=== PATIENT | female | born 1935 | race Caucasian/White ===

== ENCOUNTER 2018-04-19 10:34 | Outpatient (CLI) | payer MEDICARE, MEDICAID ==
--- NOTE | 2018-04-19 12:09 | RAD ---
2 VIEWS CHEST: Date: 04/19/18 HISTORY: Dyspnea. FINDINGS: PA and lateral views of chest obtained. Comparison made to previous exam from 08/06/15. Two views of the chest demonstrate ectasia of the aorta. The lungs are well aerated. No evidence of a ctive intrathoracic disease seen. No evidence of effusions, pneumonia, or pneumothorax seen. Osteopor osis seen in the thoracic spine. IMPRESSION: Unremarkable 2 views chest. POS: [facility]
== END 2018-04-19 10:35 | disposition home or self-care (01) ==
LOC: RAD 10:34
PROVIDERS: ATTEND Internal Medicine Pulmonary Disease
DX: R06.00 Dyspnea, unspecified (principal)
CPT/HCPCS: 71046

== ENCOUNTER 2018-08-25 12:04 | Emergency (ER) | payer MEDICARE, MEDICAID ==
[2018-08-25 12:35] LABS: Lactate 0.97 mmol/L (0.50-2.20)
[2018-08-25] MEDS ORDERED: methylPREDNISolone Sod Succ/PF 125 MG/2 ML VIAL ONE (12:39)
[2018-08-25] MEDS ORDERED: Magnesium 2 GM/50 ML BAG (IN WATER) ONE (12:39)
[2018-08-25] MEDS ORDERED: Water For Inject, Bacteriostat 30 ML ONE (12:39)
[2018-08-25 12:43] LABS: Hemoglobin 12.3 g/dL (12.0-16.0); Mean Corpuscular Hemoglobin 28.6 pg (27.0-31.0); Mean Corpuscular Volume 92.2 fL (78.0-98.0); Mean Platelet Volume 7.7 fL (7.4-10.4); Platelet Count 309 thou/uL (130-400); RBC Distribution Width 12.6 % (11.5-14.5); White Blood Cell (WBC) Count 18.8 thou/uL (4.8-10.8)
[2018-08-25 13:02] LABS: ALT (SGPT) 25 U/L (8-55); AST (SGOT) 23 U/L (5-34); Albumin 4.1 g/dL (3.4-4.8); Alkaline Phosphatase 76 U/L (40-150); Anion Gap 14 mmol/L (10-20); BUN (Urea Nitrogen) 15 mg/dL (9.8-20.1); Bilirubin, Total 0.5 mg/dL (0.2-1.2); CK (CPK) 141 U/L (29-168); Calc. Creatinine Clearance 0 mL/min (70-130); Carbon Dioxide 30 mmol/L (23-31); Chloride 99 mmol/L (98-107); Estimated GFR-MDRD 63; Globulin 3.4 g/dL (2.4-3.5); Glucose 95 mg/dL (83-110); Potassium 4.6 mmol/L (3.5-5.1); Protein, Total 7.5 g/dL (6.0-8.3); Sodium 138 mmol/L (136-145)
[2018-08-25 13:05] LABS: Band 22 % (5-11); Lymphocytes 3 % (21-51); MDiff Complete? YES; Monocytes 5 % (0-10); Neutrophil 68 % (42-75); RBC Morphology Normal
[2018-08-25 13:06] LABS: CKMB 3.9 ng/mL (0-6.6); Troponin I Less than 0.010 ng/mL (< 0.028)
[2018-08-25] MEDS ORDERED: Albuterol Sulfate 2.5 mg/0.5 ml Neb ONE (13:14)
[2018-08-25] MEDS ORDERED: Albuterol Sulfate 2.5 mg/3 ml Neb ONE (13:15)
--- NOTE | 2018-08-25 13:15 | RAD ---
CHEST ONE VIEW: HISTORY: Dyspnea. COMPARISON: 09/28/2016 FINDINGS: Normal cardiac silhouette. Pulmonary vessels and hilum are normal. Costophrenic angles are clear. Hyperinflation with chronic changes. No consolidation or mass. No pneumothorax or osseous abnormali ties. IMPRESSION: 1. Hyperinflation. 2. Chronic changes. 3. No acute cardiopulmonary process. POS: [facility]
== END 2018-08-25 17:07 | disposition home or self-care (01) ==
LOC: ERS 12:04
DX: J45.901 Unspecified asthma with (acute) exacerbation (principal); I10 Essential (primary) hypertension; Z87.891 Personal history of nicotine dependence; Z79.899 Other long term (current) drug therapy
CPT/HCPCS: 71045; 80053; 82550; 82553; 83605; 83880; 84484; 85025; 87040; 93005; 94640; 94760; 96361; 96365; 96375; J2930; J7611; J7620

== ENCOUNTER 2018-12-02 15:03 | Inpatient (IN) | payer MEDICARE, MEDICAID ==
[~2018-12-02 15:03] MED LIST: ISOVUE-370 76%-LOCM 1 ML ONE
[2018-12-02] MEDS ORDERED: Sodium Chloride For Inhalation 0.9% 3 ML NEB ONE (15:24)
[2018-12-02] MEDS ORDERED: Albuterol Sulfate 2.5 mg/0.5 ml Neb ONE (15:24)
[2018-12-02 15:34] LABS: #Lymphocytes 0.8 thou/uL (1.20-3.40); #Monocytes 0.8 thou/uL (0.11-0.59); #Neutrophils 10.1 thou/uL (1.40-6.50); %Basophils 0.3 % (0.0-1.0); %Eosinophils 0.1 % (0.0-10.0); %Lymphocytes 6.6 % (21.0-51.0); %Monocytes 7.2 % (0.0-10.0); %Neutrophils 85.8 % (42.0-75.0); Hemoglobin 12.6 g/dL (12.0-16.0); Mean Corpuscular HGB CONC 31.6 g/dL (32.0-36.0); Mean Corpuscular Hemoglobin 29.6 pg (27.0-31.0); Mean Corpuscular Volume 93.7 fL (78.0-98.0); Mean Platelet Volume 7.9 fL (7.4-10.4); Platelet Count 278 thou/uL (130-400); RBC Distribution Width 12.2 % (11.5-14.5); Red Blood Cell (RBC) Count 4.27 mill/uL (4.20-5.40); White Blood Cell (WBC) Count 11.7 thou/uL (4.8-10.8)
[2018-12-02 15:43] LABS: Base Excess-Venous 2.3 mmol/L (-2.0 to 3.0); Bicarbonate (HCO3v) 30.9 mmol/L (22.0-28.0); CO2 Tension (PvCO2) 65.7 mmHg (40.0-50.0); Chloride 98 mmol/L (98-107); Hemoglobin - Calc 13.6 g/dL (12.0-16.0); O2 Tension (PvO2) 64.9 mmHg (35.0-45.0); Potassium 4.4 mmol/L (3.5-5.1); Sodium 134 mmol/L (138-145); T. Carbon Dioxide 32.9 mmol/L (22.0-28.0); vO2 Saturation-calc 88.7 % (60.0-85.0)
[2018-12-02 15:57] LABS: ALT (SGPT) 28 U/L (8-55); AST (SGOT) 32 U/L (5-34); Albumin 4.3 g/dL (3.4-4.8); Alkaline Phosphatase 75 U/L (40-150); Anion Gap 15 mmol/L (10-20); BUN (Urea Nitrogen) 21 mg/dL (9.8-20.1); Bilirubin, Total 0.2 mg/dL (0.2-1.2); Calc. Creatinine Clearance 0 mL/min (70-130); Carbon Dioxide 30 mmol/L (23-31); Chloride 96 mmol/L (98-107); Estimated GFR-MDRD 64; Globulin 3.5 g/dL (2.4-3.5); Glucose 121 mg/dL (83-110); Potassium 4.6 mmol/L (3.5-5.1); Protein, Total 7.8 g/dL (6.0-8.3); Sodium 136 mmol/L (136-145)
--- NOTE | 2018-12-02 16:02 | RAD ---
CHEST 1 VIEW: Date: 12/02/18 HISTORY: Cough. COMPARISON: Radiograph dated 08/25/19. FINDINGS: Lungs are mildly hyperinflated. No pneumothorax. No effusion. No focal air space consolidation. IMPRESSION: Chronic changes. No acute intrathoracic abnormality. POS: [facility]
--- NOTE | 2018-12-02 19:33 | CT ---
CTA CHEST WITH CONTRAST: 12/02/18 Multiple axial tomograms obtained through the chest following an angio protocol with multiplanar eligio nstructions and 3D postprocessing. INDICATIONS: Cough. Asthma. COPD. Dyspnea x2 days. FINDINGS: The pulmonary arteries show adequate opacification. No evidence of pulmonary embolus identified. Review of the lungs show diffuse chronic lung parenchymal changes with hyperexpansion and diffuse int erstitial thickening. There is a 1 cm nodule in the mid left lung field, left upper lobe which is kailash picious for neoplasm. There is no evidence of inflammatory infiltrate or effusion. There are a few other scattered tiny nod ular opacities which are nonspecific given their tiny size. There is mediastinal adenopathy. There is a carinal lymph node which measures up to 2 cm. There are m ildly prominent bilateral hilar lymph nodes. Thoracic aorta is unremarkable with no evidence of dissection or aneurysm. Mild ectasia of the ascend ing aorta which measures up to 3.7 cm. Images through the upper abdomen reveal both adrenal glands to be mildly prominent suggesting adrenal hyperplasia. Left adrenal nodules not completely excluded. IMPRESSION: 1. No evidence of pulmonary embolus. 2. Suspicious nodule in the left mid lung measuring 1.0 cm. consider further evaluation with PET scan to assess activity. 3. Chronic lung parenchymal changes with interstitial thickening and hyperexpansion. 4. Mediastinal and hilar adenopathy. 5. Bilateral adrenal hyperplasia, more prominent on the left. Code LN POS: [facility]
[2018-12-02 22:13] VITALS: BMI 23.0
[2018-12-02] MEDS ORDERED: Ondansetron PF 4 MG/2 ML Vial IVP PRN (22:26)
[2018-12-02] MEDS ORDERED: Acetaminophen 325 MG TAB PO PRN (22:26)
[2018-12-02] MEDS ORDERED: methylPREDNISolone Sod Succ 40 MG VIAL IVP SCH (22:30)
[2018-12-02] MEDS: Bacteriostatic Water 30 ML VIAL FS PRN (22:41)
[2018-12-02] MEDS ORDERED: guaiFENesin ER 600 MG TAB PO PRN (23:34)
[2018-12-03 04:24] LABS: #Lymphocytes 0.5 thou/uL (1.20-3.40); #Monocytes 0.4 thou/uL (0.11-0.59); #Neutrophils 9.4 thou/uL (1.40-6.50); %Eosinophils 0.2 % (0.0-10.0); %Lymphocytes 4.6 % (21.0-51.0); %Monocytes 3.9 % (0.0-10.0); %Neutrophils 91.3 % (42.0-75.0); Hemoglobin 11.9 g/dL (12.0-16.0); Mean Corpuscular Hemoglobin 30.1 pg (27.0-31.0); Mean Corpuscular Volume 94.1 fL (78.0-98.0); Mean Platelet Volume 7.7 fL (7.4-10.4); Platelet Count 234 thou/uL (130-400); RBC Distribution Width 12.3 % (11.5-14.5); Red Blood Cell (RBC) Count 3.95 mill/uL (4.20-5.40); White Blood Cell (WBC) Count 10.3 thou/uL (4.8-10.8)
[2018-12-03 04:44] LABS: Anion Gap 13 mmol/L (10-20); BUN (Urea Nitrogen) 20 mg/dL (9.8-20.1); Calc. Creatinine Clearance 57 mL/min (70-130); Calcium 9.3 mg/dL (7.8-10.44); Carbon Dioxide 27 mmol/L (23-31); Chloride 98 mmol/L (98-107); Estimated GFR-MDRD 74; Glucose 112 mg/dL (83-110); Potassium 4.8 mmol/L (3.5-5.1); Sodium 133 mmol/L (136-145)
[2018-12-03] MEDS: Bacteriostatic Water 30 ML VIAL FS PRN (05:23)
[2018-12-03] MEDS: methylPREDNISolone Sod Succ 40 MG VIAL IVP SCH ×3 (05:23→17:34)
--- NOTE | 2018-12-03 05:27 | HP ---
PRIMARY CARE PHYSICIAN: The patient goes to [facility]. CODE STATUS: Full code. TIME OF EVALUATION: 7:50 p.m. CHIEF COMPLAINT: Shortness of breath. HISTORY OF PRESENT ILLNESS: This is an 83-year-old female patient with past medical history of COPD; hypertension; asthma; chronic respiratory failure, on 2 L nasal cannula at home, came to the hospital after having severe tachypnea, cough with shortness of breath, symptoms started 4 days ago, has been gradually getting worse today. The patient needed BiPAP to decrease her respiratory effort and improve her symptoms and keep saturation over 90. She has had no clear triggers or alleviating factors. Medications have been given. Respiratory treatment given in the ER. REVIEW OF SYSTEMS: CONSTITUTIONAL: No fever, chills, or generalized weakness. RESPIRATORY: The patient has cough, sputum production, shortness of breath, and tachypnea. CARDIOVASCULAR: The patient has palpitation. No chest pain. GASTROINTESTINAL: No nausea, vomiting, diarrhea, or abdominal pain. IT OPERATIONS SPECIALIST: No dizziness, headache, or feeling lightheaded. GENITOURINARY: No burning on urination. EXTREMITIES: No leg swelling. All other systems were reviewed and negative except for the findings mentioned above. PAST MEDICAL HISTORY: As mentioned in the HPI. PAST SURGICAL HISTORY: Tonsillectomy, cyst of neck. FAMILY HISTORY:Reviewed and no contributory for current presentation. PSYCHIATRIC HISTORY: No previous psych history. SOCIAL HISTORY: Former tobacco user. Smokes cigarettes. The patient quit smoking more than 10 years ago. Drinks socially. FAMILY HISTORY: Reviewed and noncontributory for current presentation. Mother had cardiac disease. REPORTED MEDICATIONS: 1. ProAir. 2. Lisinopril. 3. Prednisone. 4. Spiriva. 5. Albuterol. 6. Flovent. PHYSICAL EXAMINATION: VITAL SIGNS: On presentation; blood pressure 168/119 with heart rate 153, respiratory rate was 33, temperature 98.4. Pain 3/10. Oxygen saturation was 95% on room air. Heart rate has come down after the patient has improved on her respiratory status. GENERAL APPEARANCE: The patient is alert and oriented. The patient is in mild respiratory distress, on BiPAP due to underlying COPD. HEENT: Eyes, normal conjunctivae. Moist oral mucosa. Anicteric. No JVD. RESPIRATORY: The patient has bilateral air entry that is decreased with scattered rales and bilateral wheezing. Symmetric expansion seems to be decreased. The patient is tachypneic, on BiPAP. CARDIOVASCULAR: The patient is tachycardic. Regular rhythm. No murmurs or gallop. No edema. ABDOMEN: Soft. Normal bowel sounds. MUSCULOSKELETAL: Baseline range of motion and strength. No tenderness. SKIN: Warm and intact. No pallor. No rash. No redness. Peripheral pulses are present. Capillary refill seems to be intact. NEUROLOGIC: No evidence of any new focal weakness. Baseline speech. Cranial nerves seems to be intact. PSYCHIATRIC: The patient is in good mood. No anxiety. Optimal judgment. DIAGNOSTIC DATA: EKG, sinus tachy at a rate of 153, NC 130, QRS 54 and QT corrected 488. LABORATORY DATA: Reviewed. The patient has white count 11.7, hemoglobin 12.6, MCV 93.7, and platelet count 178. D-dimer 0.53. Blood gas was done; VBG showed pH 7.28, with correction showed pH 7.31, pCO2 of 65. Chemistry; sodium 136, potassium 4.6 , chloride 96, carbon dioxide 30, anion gap 15, BUN 21, creatinine 0.85, GFR 64, glucose 131, calcium 10, and total bilirubin 0.2. LFTs were negative. Beta natriuretic peptide was 92.7. ASSESSMENT AND PLAN: The patient will be placed in the hospital with following medical problems: 1. Acute hypoxic and hypercarbic respiratory failure secondary to chronic obstructive pulmonary disease exacerbation. The patient is on BiPAP, tolerating well, we will place her in IMCU. We will treat the underlying condition, which is acute on chronic. The patient uses 3 L nasal cannula at home. 2. Chronic obstructive pulmonary disease exacerbation. The patient will be placed on steroids, nebulizers, and antibiotics. We will place her in IMCU. We will treat accordingly. We will adjust treatment as needed. 3. Uncontrolled hypertension, most likely secondary to acute respiratory distress, we will treat underlying condition. We will monitor, reconcile medications. 4. Deep venous thrombosis prophylaxis. 5. Hyperglycemia, this is mild, blood sugar 121, this could be secondary to acute physical distress. We will monitor, no need for any acute intervention at this point. Job ID: [id number] [facility]
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
[2018-12-03] MEDS: Lisinopril 20 MG TAB PO SCH (08:49)
[2018-12-03] MEDS: Enoxaparin Sodium 40 MG/0.4 ML SYRINGE SC SCH (08:49)
--- NOTE | 2018-12-03 09:11 | CON ---
DATE OF CONSULTATION: HISTORY OF PRESENT ILLNESS: Stephanie Stephens is an 83-year-old female, called the office two days ago with increasing shortness of breath and cough. She was given a course of prednisone to which she says she felt no better. She told to come to the ER, where she apparently came late in the evening, was admitted. This morning, she is coughing some gross yellow sputum. Chest x-ray was normal. CT chest showed no pulmonary emboli, but left upper lung 1 cm nodule. She is a former smoker, mostly she can barely walk 50 feet without any markedly shortness of breath. PAST MEDICAL HISTORY: Well outlined, pertinent for COPD, former smoker, asthma, hypertension, anxiety. PAST SURGICAL HISTORY: Otherwise included, none recently, but tonsillectomy, benign tumor removal. SOCIAL HISTORY: Tobacco, a pack a day, quit smoking 10 years ago. Alcohol, none. ALLERGIES: NONE. HOME MEDICINES: 1. Guaifenesin. 2. Mucinex 600 twice a day. 3. Spiriva once a day. 4. Lisinopril 20. 5. Albuterol inhaler, nebulized albuterol. REVIEW OF SYSTEMS: Ten-point negative. PHYSICAL EXAMINATION: VITAL SIGNS: Blood pressure is 141/95, sats 90% on 3 L, respiratory rate 24, pulse 118, temperature 97. CHEST: Decreased breath sounds. No wheezing. CARDIAC: Normal S1 and S2. No gallops. ABDOMEN: No masses. LABORATORY DATA: White count 22876, hemoglobin and hematocrit are 11 and 37, platelet count is 234. Admission PO2 was 64, pCO2 was 65, pH 7.28. She was placed on noninvasive ventilation to which she says she felt better. Her lytes are normal. Sodium is 133. IMPRESSION: Chronic obstructive pulmonary disease exacerbation, bronchitis, former smoker, left upper lung nodule. Further workup on outpatient basis. PLAN: Continue neb treatments, steroids, antibiotics. We will follow. Consultation note, 70 minutes, 50% direct patient care. Job ID: [id number]
[2018-12-03] MEDS: ALPRAZolam 0.25 MG TAB PO PRN ×2 (13:06→21:02)
[2018-12-03] MEDS: Mometasone/Formoterol 120 PUFF INHALER INH SCH (18:27)
[2018-12-03] MEDS: guaiFENesin 200 MG TAB PO SCH (21:02)
--- NOTE | 2018-12-03 22:25 | PDOC.PN ---
- Subjective Encounter Start Date: 12/03/18 Encounter Start Time: 11:00 Still feeling a little SOB. Feels very anxious. Has persistent cough. - Objective Resuscitation Status - Order Detail: 12/02/18 22:26 Resuscitation Status Routine Resuscitation Status: FULL: Full Resuscitation Vital Signs & Weight: Vital Signs (12 hours) Temp Pulse Resp Pulse Ox 12/03/18 19:48 98.4 F 12/03/18 19:46 98 12/03/18 18:25 124 H 20 98 12/03/18 15:18 123 H 26 H 95 12/03/18 15:15 98.4 F 12/03/18 12:00 100 12/03/18 11:23 120 H 26 H 100 12/03/18 11:19 97.5 F L Weight Weight 134 lb 4.8 oz Most Recent Monitor Data Heart Rate from ECG 111 NIBP 113/62 NIBP BP-Mean 79 Respiration from ECG 19 SpO2 99 I&O: 12/02/18 12/03/18 12/04/18 06:59 06:59 06:59 Intake Total 150 620 Output Total 350 Balance -200 620 Result Diagrams: 12/03/18 04:12 12/03/18 04:12 Phys Exam - Physical Examination Tachypneic. Pleasant. Respiratory: no wheezing Tachypneic. Cardiovascular: RRR, no significant murmur Gastrointestinal: soft, non-tender, no distention, positive bowel sounds Musculoskeletal: no edema Psychiatric: A&O x 3 Dx/Plan (1) Hypertension Code(s): I10 - ESSENTIAL (PRIMARY) HYPERTENSION Status: Chronic (2) Pulmonary nodule Code(s): R91.1 - SOLITARY PULMONARY NODULE Status: Chronic (3) Acute on chronic respiratory failure with hypoxia and hypercapnia Code(s): J96.21 - ACUTE AND CHRONIC RESPIRATORY FAILURE WITH HYPOXIA; J96.22 - ACUTE AND CHRONIC RESPIRATORY FAILURE WITH HYPERCAPNIA Status: Acute (4) COPD exacerbation Code(s): J44.1 - CHRONIC OBSTRUCTIVE PULMONARY DISEASE W (ACUTE) EXACERBATION Status: Acute (5) Anemia Code(s): D64.9 - ANEMIA, UNSPECIFIED Status: Chronic - Plan * Add some xanax for the anxiety component. * Pulm CC following. * Continue nebs, oxygen, steroids.
[2018-12-04] MEDS: methylPREDNISolone Sod Succ 40 MG VIAL IVP SCH ×3 (00:43→11:08)
[2018-12-04] MEDS: ALPRAZolam 0.25 MG TAB PO PRN ×3 (02:39→20:57)
[2018-12-04] MEDS: Mometasone/Formoterol 120 PUFF INHALER INH SCH ×2 (06:29→18:39)
[2018-12-04] MEDS: Lisinopril 20 MG TAB PO SCH (09:23)
[2018-12-04] MEDS: Enoxaparin Sodium 40 MG/0.4 ML SYRINGE SC SCH (09:23)
[2018-12-04] MEDS: guaiFENesin 200 MG TAB PO SCH ×3 (09:24→20:57)
[2018-12-04 09:36] LABS: Anion Gap 16 mmol/L (10-20); BUN (Urea Nitrogen) 27 mg/dL (9.8-20.1); Calc. Creatinine Clearance 54 mL/min (70-130); Calcium 9.2 mg/dL (7.8-10.44); Carbon Dioxide 24 mmol/L (23-31); Chloride 98 mmol/L (98-107); Estimated GFR-MDRD 66; Glucose 140 mg/dL (83-110); Potassium 4.7 mmol/L (3.5-5.1); Sodium 133 mmol/L (136-145)
--- NOTE | 2018-12-04 11:03 | PDOC.PN ---
- Subjective Encounter Start Date: 12/04/18 Encounter Start Time: 11:00 Feeling a little better. Still feels anxious. Reports some tenderness, redness and swelling in her left foot. - Objective Resuscitation Status - Order Detail: 12/02/18 22:26 Resuscitation Status Routine Resuscitation Status: FULL: Full Resuscitation Vital Signs & Weight: Vital Signs (12 hours) Temp Pulse Resp BP Pulse Ox 12/04/18 10:16 120 H 28 H 97 12/04/18 09:23 137/78 12/04/18 07:31 98.0 F 12/04/18 07:13 97 12/04/18 06:25 116 H 25 H 92 L 12/04/18 03:37 97.6 F 12/04/18 02:37 118 H 12/04/18 02:15 111 H 25 H 98 12/03/18 23:57 97.0 F L Weight Weight 141 lb 3.2 oz Most Recent Monitor Data Heart Rate from ECG 103 NIBP 101/64 NIBP BP-Mean 76 Respiration from ECG 18 SpO2 100 I&O: 12/03/18 12/04/18 12/05/18 06:59 06:59 06:59 Intake Total 150 1220 Output Total 350 Balance -200 1220 Result Diagrams: 12/03/18 04:12 12/04/18 08:57 Phys Exam - Physical Examination Constitutional: NAD Talking a little better. Diminished sounds left base. Scattered wheezes. Scattered rales. Cardiovascular: RRR, no significant murmur Gastrointestinal: soft, non-tender, no distention, positive bowel sounds Left distal foot and toes are warm and slightly erythematous. Neurological: non-focal Psychiatric: normal affect, A&O x 3 Dx/Plan (1) Acute on chronic respiratory failure with hypoxia and hypercapnia Code(s): J96.21 - ACUTE AND CHRONIC RESPIRATORY FAILURE WITH HYPOXIA; J96.22 - ACUTE AND CHRONIC RESPIRATORY FAILURE WITH HYPERCAPNIA Status: Acute (2) Pulmonary nodule Code(s): R91.1 - SOLITARY PULMONARY NODULE Status: Chronic (3) COPD exacerbation Code(s): J44.1 - CHRONIC OBSTRUCTIVE PULMONARY DISEASE W (ACUTE) EXACERBATION Status: Acute (4) Hypertension Code(s): I10 - ESSENTIAL (PRIMARY) HYPERTENSION Status: Chronic (5) Anemia Code(s): D64.9 - ANEMIA, UNSPECIFIED Status: Chronic (6) Anxiety Code(s): F41.9 - ANXIETY DISORDER, UNSPECIFIED Status: Acute (7) Bronchitis Code(s): J40 - BRONCHITIS, NOT SPECIFIED ACUTE OR CHRONIC Status: Acute (8) Left foot pain Code(s): M79.672 - PAIN IN LEFT FOOT Status: Acute - Plan * Continue oxygen, duonebs, steroids and empiric abx. * Still has some evidence of bronchitis. * Continue xanax prn. * Uric acid level and x-ray foot.
--- NOTE | 2018-12-04 14:17 | PRG ---
DATE OF SERVICE: 12/04/2018 SERVICE: Pulmonary Medication. INTERVAL HISTORY: The patient is doing fine from respiratory standpoint. Breathing comfortably. Denies any current chest pain, fevers, or chills. Otherwise, there has been no interval change to her condition. She continues to cough and is bringing up yellow sputum. She is going to be requesting some tea here in a second to see if she can liberate some more crud. Otherwise, there has been no interval change to her condition. PHYSICAL EXAMINATION: VITAL SIGNS: Afebrile, pulse 120, blood pressure 122/81, respirations 24, and saturation 96% on 3 L nasal cannula. GENERAL: The patient is awake and alert, in no apparent distress. LUNGS: There is decreased air entry. No prolonged expiratory phase with crackles and rhonchi both noted. There is polyphonic wheezing at the end of expiration. HEART: Normal rate and regular. ABDOMEN: Soft, nontender, and nondistended. Bowel sounds are positive. MUSCULOSKELETAL: No cyanosis or clubbing. There is trace pitting in the bilateral lower extremities. NEUROLOGIC: Grossly nonfocal. LABORATORY DATA: Sodium 133. Basic metabolic profile is otherwise unremarkable. ASSESSMENT: 1. Acute on chronic hypoxic respiratory failure. 2. Chronic obstructive pulmonary disease with acute exacerbation. 3. Pulmonary nodule. 4. Obstructive sleep apnea, suspected. DISCUSSION AND PLAN: Pulmonary/Critical Care will continue to follow along while the patient remains inhouse. We will continue her nebulized medications, antibiotics, and steroids. Cough suppressants will be interrupted. She will need to remain in the IMCU until she more clearly no longer requires BiPAP at night. She actually said that she slept wonderfully on the BiPAP. I think she may have sleep apnea based on some of the symptoms that she reports. As such, outpatient polysomnogram should be considered. Job ID: [id number]
--- NOTE | 2018-12-04 16:12 | RAD ---
THREE VIEWS LEFT FOOT: 12/04/18 HISTORY: 83-year-old with left foot edema and redness. AP, lateral and oblique views left foot obtained. Three views of the left foot demonstrate no evidence of left foot fractures, subluxations, or bony le sions. No acute bony lesions seen. No evidence of erosive changes seen. No evidence of a fracture se en. IMPRESSION: Unremarkable three views left foot. POS: [facility]
[2018-12-05] MEDS: Mometasone/Formoterol 120 PUFF INHALER INH SCH (07:16)
[2018-12-05] MEDS: ALPRAZolam 0.25 MG TAB PO PRN ×2 (07:47→22:37)
[2018-12-05] MEDS: Lisinopril 20 MG TAB PO SCH (07:47)
[2018-12-05] MEDS: guaiFENesin 200 MG TAB PO SCH ×3 (07:47→20:52)
[2018-12-05] MEDS: predniSONE 20 MG TAB PO SCH (07:47)
[2018-12-05] MEDS: Enoxaparin Sodium 40 MG/0.4 ML SYRINGE SC SCH (07:48)
--- NOTE | 2018-12-05 14:31 | PRG ---
DATE OF SERVICE: 12/05/2018 SERVICE: Pulmonary Medicine. INTERVAL HISTORY: The patient is doing poorly from respiratory standpoint. She continues to have increasing congestion, shortness of breath. Otherwise, there has been no change to her condition. She denies any fevers or chills. She is not having any nausea or vomiting. 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 She has very severe shortness of breath with limited mobility. PHYSICAL EXAMINATION: VITAL SIGNS: Afebrile. Pulse 116, blood pressure 137/85, respirations 23, saturation 98% on 2 L nasal cannula. GENERAL: The patient is awake and alert, in no apparent distress. LUNGS: Extensive rhonchi are present. Slightly prolonged expiratory phase and minimal wheezing are noted. Crackles are also present in bibasilar regions. HEART: Normal rate and regular. ABDOMEN: Soft, nontender, nondistended. Bowel sounds are positive. MUSCULOSKELETAL: No cyanosis or clubbing. There is trace pitting in the bilateral lower extremities. NEUROLOGIC: Grossly nonfocal. LABORATORY DATA: Uric acid level is 4.7. IMAGING: Foot x-ray shows unremarkable 3-view of the left foot. ASSESSMENT: 1. Acute on chronic hypoxic respiratory failure. 2. Chronic obstructive pulmonary disease with acute exacerbation. 3. Pulmonary nodule. 4. Obstructive sleep apnea, suspected. DISCUSSION AND PLAN: We will continue our nebulized medications, antibiotics, and steroids. We will introduce some physiotherapy to her to see if we can facilitate mobility of the secretions. I will give her single dose of Lasix today. She is minimally volume up. Polysomnogram should be considered in the outpatient setting. Job ID: [id number] [facility]
--- NOTE | 2018-12-05 14:44 | PDOC.PN ---
- Subjective Encounter Start Date: 12/05/18 Encounter Start Time: 14:41 Doing a little better. Still feels a little jittery. Rattling in the lung keeping her from sleeping. - Objective Resuscitation Status - Order Detail: 12/02/18 22:26 Resuscitation Status Routine Resuscitation Status: FULL: Full Resuscitation Vital Signs & Weight: Vital Signs (12 hours) Temp Pulse Resp BP Pulse Ox 12/05/18 11:30 97.2 F L 12/05/18 10:27 113 H 25 H 97 12/05/18 07:47 139/86 12/05/18 07:35 98 12/05/18 07:19 96.8 F L 12/05/18 07:13 120 H 28 H 99 12/05/18 03:55 97.2 F L Weight Weight 140 lb 4.8 oz Most Recent Monitor Data Heart Rate from ECG 117 NIBP 143/99 NIBP BP-Mean 113 Respiration from ECG 21 SpO2 98 I&O: 12/04/18 12/05/18 12/06/18 06:59 06:59 06:59 Intake Total 1220 1140 Output Total 585 150 Balance 1220 555 -150 Result Diagrams: 12/03/18 04:12 12/04/18 08:57 Phys Exam - Physical Examination Constitutional: NAD Scattered wheezing and rales in all lung scott. Cardiovascular: RRR, no significant murmur Gastrointestinal: soft, non-tender, no distention, positive bowel sounds Musculoskeletal: no edema Psychiatric: normal affect, A&O x 3 Dx/Plan (1) Acute on chronic respiratory failure with hypoxia and hypercapnia Code(s): J96.21 - ACUTE AND CHRONIC RESPIRATORY FAILURE WITH HYPOXIA; J96.22 - ACUTE AND CHRONIC RESPIRATORY FAILURE WITH HYPERCAPNIA Status: Acute (2) Pulmonary nodule Code(s): R91.1 - SOLITARY PULMONARY NODULE Status: Chronic (3) COPD exacerbation Code(s): J44.1 - CHRONIC OBSTRUCTIVE PULMONARY DISEASE W (ACUTE) EXACERBATION Status: Acute (4) Hypertension Code(s): I10 - ESSENTIAL (PRIMARY) HYPERTENSION Status: Chronic (5) Anemia Code(s): D64.9 - ANEMIA, UNSPECIFIED Status: Chronic (6) Anxiety Code(s): F41.9 - ANXIETY DISORDER, UNSPECIFIED Status: Acute (7) Bronchitis Code(s): J40 - BRONCHITIS, NOT SPECIFIED ACUTE OR CHRONIC Status: Acute (8) Left foot pain Code(s): M79.672 - PAIN IN LEFT FOOT Status: Acute - Plan * Foot pain better. * Still tachypneic and wheezing. * Continue steroids, nebs, chest physio. * Reviewed records back to 2013. Always tachycardic on admission. * Will need follow up on lung nodule at some point.
[2018-12-05] MEDS ORDERED: Furosemide 40 MG/4 ML VIAL SLOW IVP SCH (15:30)
[2018-12-05] MEDS: Ondansetron ODT 4 MG TAB PO PRN (22:40)
[2018-12-06 06:07] LABS: #Monocytes 1.2 thou/uL (0.11-0.59); #Neutrophils 7.7 thou/uL (1.40-6.50); %Basophils 0.1 % (0.0-1.0); %Eosinophils 0.1 % (0.0-10.0); %Lymphocytes 18.4 % (21.0-51.0); %Monocytes 10.8 % (0.0-10.0); %Neutrophils 70.6 % (42.0-75.0); Hemoglobin 12.3 g/dL (12.0-16.0); Mean Corpuscular HGB CONC 31.3 g/dL (32.0-36.0); Mean Corpuscular Hemoglobin 29.4 pg (27.0-31.0); Mean Corpuscular Volume 94.1 fL (78.0-98.0); Mean Platelet Volume 7.8 fL (7.4-10.4); Platelet Count 233 thou/uL (130-400); RBC Distribution Width 12.1 % (11.5-14.5); White Blood Cell (WBC) Count 10.9 thou/uL (4.8-10.8)
[2018-12-06 06:26] LABS: Phosphorus 3.8 mg/dL (2.3-4.7)
[2018-12-06 06:27] LABS: BUN (Urea Nitrogen) 26 mg/dL (9.8-20.1); Calc. Creatinine Clearance 53 mL/min (70-130); Calcium 9.3 mg/dL (7.8-10.44); Estimated GFR-MDRD 66; Glucose 83 mg/dL (83-110); Magnesium 2.1 mg/dL (1.6-2.6)
[2018-12-06 06:36] LABS: Anion Gap 15 mmol/L (10-20); Carbon Dioxide 34 mmol/L (23-31); Chloride 89 mmol/L (98-107); Potassium 4.3 mmol/L (3.5-5.1); Sodium 134 mmol/L (136-145)
--- NOTE | 2018-12-06 08:42 | PDOC.PN ---
- Subjective Encounter Start Date: 12/06/18 Encounter Start Time: 08:40 Subjective: requiring PRN BIPAP - Objective Resuscitation Status - Order Detail: 12/02/18 22:26 Resuscitation Status Routine Resuscitation Status: FULL: Full Resuscitation MAR Reviewed: Yes Vital Signs & Weight: Vital Signs (12 hours) Temp Pulse Resp Pulse Ox 12/06/18 07:37 97.3 F L 12/06/18 07:25 100 12/06/18 07:13 139 H 22 H 95 12/06/18 04:01 96.9 F L 12/06/18 02:47 115 H 21 H 95 12/05/18 23:21 97.0 F L 12/05/18 22:06 129 H 27 H 96 Weight Weight 140 lb 4.8 oz Most Recent Monitor Data Heart Rate from ECG 113 NIBP 125/73 NIBP BP-Mean 90 Respiration from ECG 16 SpO2 99 I&O: 12/05/18 12/06/18 12/07/18 06:59 06:59 06:59 Intake Total 1140 964 Output Total 585 1900 Balance 555 -936 Result Diagrams: 12/06/18 05:56 12/06/18 05:56 Phys Exam - Physical Examination Neck: no JVD hyperresonant with distant BS, exp wheezes, rhonchi Cardiovascular: RRR, no significant murmur tachy Gastrointestinal: soft, positive bowel sounds Musculoskeletal: edema present Dx/Plan (1) COPD exacerbation Code(s): J44.1 - CHRONIC OBSTRUCTIVE PULMONARY DISEASE W (ACUTE) EXACERBATION Status: Acute (2) Acute on chronic respiratory failure with hypoxia and hypercapnia Code(s): J96.21 - ACUTE AND CHRONIC RESPIRATORY FAILURE WITH HYPOXIA; J96.22 - ACUTE AND CHRONIC RESPIRATORY FAILURE WITH HYPERCAPNIA Status: Acute (3) Anxiety Code(s): F41.9 - ANXIETY DISORDER, UNSPECIFIED Status: Chronic (4) Hypertension Code(s): I10 - ESSENTIAL (PRIMARY) HYPERTENSION Status: Chronic Qualifiers: Hypertension type: essential hypertension Qualified Code(s): I10 - Essential (primary) hypertension (5) Pulmonary nodule Code(s): R91.1 - SOLITARY PULMONARY NODULE Status: Chronic (6) CKD (chronic kidney disease) stage 3, GFR 30-59 ml/min Status: Chronic - Plan cont nebs, steroids, antibx, BIPAP -: 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
[2018-12-06] MEDS ORDERED: Magnesium 2 GM/NS 0.9% 100 ML 2 GM in Premix Bag 1 BAG IVPB SCH (09:30)
[2018-12-06] MEDS ORDERED: Magnesium 2 GM/50 ML 2 GM in Premix Bag 1 BAG IVPB SCH (09:30)
[2018-12-06] MEDS: Enoxaparin Sodium 40 MG/0.4 ML SYRINGE SC SCH (09:34)
[2018-12-06] MEDS: guaiFENesin 200 MG TAB PO SCH ×3 (09:35→21:37)
[2018-12-06] MEDS: Lisinopril 20 MG TAB PO SCH (09:35)
[2018-12-06] MEDS: predniSONE 20 MG TAB PO SCH (09:35)
--- NOTE | 2018-12-06 09:49 | PRG ---
DATE OF SERVICE: 12/06/2018 SUBJECTIVE: The patient, this morning, is still very anxious. OBJECTIVE: VITAL SIGNS: Heart rate is 130, sinus tach, temperature 97, O2 saturation 100% on 3 L, respiratory rate 20. CHEST: Diffuse wheezing. CARDIAC: Sinus tach. ABDOMEN: Soft without masses. LABORATORY DATA: Lytes are normal. Bicarb was 34. White count 10,000. IMPRESSION: 1. Chronic obstructive pulmonary disease exacerbation. 2. Bronchitis. 3. Respiratory failure. 4. Major anxiety. PLAN: Continue present treatment , added magnesium ,and steroids. We will follow. Job ID: [id number] [facility]
[2018-12-07] MEDS ORDERED: Calcium Carbonate 500 MG ChewTAB PO SCH (03:00)
[2018-12-07 05:54] LABS: %Eosinophils 0.1 % (0.0-10.0); %Monocytes 10.8 % (0.0-10.0); Mean Corpuscular Volume 94.3 fL (78.0-98.0); RBC Distribution Width 12.2 % (11.5-14.5)
[2018-12-07 06:01] LABS: #Lymphocytes 1.9 thou/uL (1.20-3.40); #Monocytes 1.5 thou/uL (0.11-0.59); #Neutrophils 10.1 thou/uL (1.40-6.50); %Basophils 0.3 % (0.0-1.0); %Lymphocytes 14.1 % (21.0-51.0); %Neutrophils 74.9 % (42.0-75.0); Hemoglobin 11.9 g/dL (12.0-16.0); Mean Corpuscular HGB CONC 31.5 g/dL (32.0-36.0); Mean Corpuscular Hemoglobin 29.7 pg (27.0-31.0); Mean Platelet Volume 7.7 fL (7.4-10.4); Platelet Count 226 thou/uL (130-400); White Blood Cell (WBC) Count 13.5 thou/uL (4.8-10.8)
[2018-12-07 06:13] LABS: BUN (Urea Nitrogen) 26 mg/dL (9.8-20.1); Calc. Creatinine Clearance 56 mL/min (70-130); Calcium 9.2 mg/dL (7.8-10.44); Estimated GFR-MDRD 70; Glucose 87 mg/dL (83-110)
[2018-12-07 06:22] LABS: Anion Gap 15 mmol/L (10-20); Carbon Dioxide 34 mmol/L (23-31); Chloride 86 mmol/L (98-107); Potassium 4.8 mmol/L (3.5-5.1); Sodium 130 mmol/L (136-145)
[2018-12-07] MEDS: predniSONE 20 MG TAB PO SCH (08:49)
[2018-12-07] MEDS: guaiFENesin 200 MG TAB PO SCH ×3 (08:49→20:36)
[2018-12-07 08:50] VITALS: BP 128/67
[2018-12-07] MEDS: ALPRAZolam 0.25 MG TAB PO PRN ×2 (08:50→20:36)
[2018-12-07] MEDS: Lisinopril 20 MG TAB PO SCH (08:50)
[2018-12-07] MEDS: Enoxaparin Sodium 40 MG/0.4 ML SYRINGE SC SCH (08:50)
--- NOTE | 2018-12-07 09:59 | PDOC.PN ---
- Subjective Encounter Start Date: 12/07/18 Encounter Start Time: 09:57 Subjective: did not need BIPAP overnite - Objective Resuscitation Status - Order Detail: 12/02/18 22:26 Resuscitation Status Routine Resuscitation Status: FULL: Full Resuscitation MAR Reviewed: Yes Vital Signs & Weight: Vital Signs (12 hours) Temp Pulse Resp BP Pulse Ox 12/07/18 08:50 128/67 12/07/18 07:39 100 12/07/18 07:37 125 H 26 H 95 12/07/18 07:29 96.6 F L 12/07/18 04:00 97.9 F 12/07/18 02:45 113 H 20 100 12/07/18 00:00 97.3 F L 12/06/18 22:19 112 H 20 100 Weight Weight 140 lb 4.8 oz Most Recent Monitor Data Heart Rate from ECG 111 NIBP 114/58 NIBP BP-Mean 76 Respiration from ECG 18 SpO2 100 I&O: 12/06/18 12/07/18 12/08/18 06:59 06:59 06:59 Intake Total 964 720 Output Total 1900 750 Balance -936 -30 Result Diagrams: 12/07/18 05:21 12/07/18 05:21 Phys Exam - Physical Examination Neck: no JVD coarse BS, diffuse Coarse rales Cardiovascular: RRR, no significant murmur Gastrointestinal: soft, positive bowel sounds Musculoskeletal: edema present Dx/Plan (1) COPD exacerbation Code(s): J44.1 - CHRONIC OBSTRUCTIVE PULMONARY DISEASE W (ACUTE) EXACERBATION Status: Acute (2) Acute on chronic respiratory failure with hypoxia and hypercapnia Code(s): J96.21 - ACUTE AND CHRONIC RESPIRATORY FAILURE WITH HYPOXIA; J96.22 - ACUTE AND CHRONIC RESPIRATORY FAILURE WITH HYPERCAPNIA Status: Acute (3) Anxiety Code(s): F41.9 - ANXIETY DISORDER, UNSPECIFIED Status: Chronic (4) Hypertension Code(s): I10 - ESSENTIAL (PRIMARY) HYPERTENSION Status: Chronic Qualifiers: Hypertension type: essential hypertension Qualified Code(s): I10 - Essential (primary) hypertension (5) Pulmonary nodule Code(s): R91.1 - SOLITARY PULMONARY NODULE Status: Chronic (6) CKD (chronic kidney disease) stage 3, GFR 30-59 ml/min Status: Chronic - Plan cont agressive nebs, steroids, LABA, antibx -: cont O2 -: cont lisinopril -: slow progress , may be able to deescalate leveel of care soon * .
--- NOTE | 2018-12-07 10:02 | PRG ---
DATE OF SERVICE: 12/07/2018 SUBJECTIVE: An 83-year-old female with marked respiratory status, still very short of breath this morning.and anxious_. OBJECTIVE: VITAL SIGNS: Sats are 100% 3 L, respiratory rate 26, blood pressure is 140/58, and temperature 96. CHEST: Decreased breath sounds. Prolonged expiration. Bilateral wheezing. CARDIAC: Normal S1 and S2. No gallops. ABDOMEN: No masses. LABORATORY DATA: White count 13,000, hemoglobin and hematocrit 11 and 33, platelet count normal. Lytes normal. Sodium is 130. IMPRESSION: 1. End-stage chronic obstructive pulmonary disease. 2. Hyponatremia, could be medication related. 3. Major anxiety. PLAN: She will continue nocturnal ventilation. I am thinking at this stage, I would try Brovana and budesonide twice a day. See whether she can tolerate without any side effects. Otherwise, continue supportive care. Still not ready to be discharged home. We will follow. Job ID: [id number] [facility]
[2018-12-07] MEDS: Budesonide 0.5 MG/2 ML NEB INH SCH (18:23)
[2018-12-07] MEDS: Arformoterol 15 MCG/2 ML NEB NEB SCH (18:23)
[2018-12-08 05:08] LABS: #Lymphocytes 2.2 thou/uL (1.20-3.40); #Neutrophils 8.3 thou/uL (1.40-6.50); %Basophils 0.4 % (0.0-1.0); %Eosinophils 0.1 % (0.0-10.0); %Lymphocytes 18.9 % (21.0-51.0); %Monocytes 8.6 % (0.0-10.0); %Neutrophils 71.9 % (42.0-75.0); Hemoglobin 11.7 g/dL (12.0-16.0); Mean Corpuscular HGB CONC 31.6 g/dL (32.0-36.0); Mean Corpuscular Hemoglobin 29.7 pg (27.0-31.0); Mean Corpuscular Volume 93.8 fL (78.0-98.0); Mean Platelet Volume 8.1 fL (7.4-10.4); Platelet Count 220 thou/uL (130-400); RBC Distribution Width 11.9 % (11.5-14.5); Red Blood Cell (RBC) Count 3.93 mill/uL (4.20-5.40); White Blood Cell (WBC) Count 11.5 thou/uL (4.8-10.8)
[2018-12-08 05:29] LABS: BUN (Urea Nitrogen) 19 mg/dL (9.8-20.1); Calc. Creatinine Clearance 55 mL/min (70-130); Calcium 9.6 mg/dL (7.8-10.44); Estimated GFR-MDRD 68; Glucose 84 mg/dL (83-110)
[2018-12-08 05:38] LABS: Anion Gap 14 mmol/L (10-20); Carbon Dioxide 35 mmol/L (23-31); Chloride 88 mmol/L (98-107); Sodium 132 mmol/L (136-145)
[2018-12-08] MEDS: Budesonide 0.5 MG/2 ML NEB INH SCH ×2 (06:33→18:27)
[2018-12-08] MEDS: Arformoterol 15 MCG/2 ML NEB NEB SCH ×2 (06:33→18:27)
--- NOTE | 2018-12-08 08:37 | PRG ---
DATE OF SERVICE: 12/08/2018 SUBJECTIVE: This morning, she is awake, alert, and responsive. She says she is feeling better, though she still remains very anxious. Her chemistry profile shows bicarb is elevated at 35, suggesting chronic respiratory acidosis. OBJECTIVE: VITAL SIGNS: Blood pressure 102/68, pulse 132, temperature is 97, and saturations 90% on 2 L. CHEST: Decreased breath sounds. Minimal wheezing. CARDIAC: Sinus tach. ABDOMEN: Soft. IMPRESSION: 1. Chronic obstructive pulmonary disease exacerbation, bronchitis. 2. Metabolic alkalosis secondary to respiratory acidosis. 3. Major anxiety. PLAN: She appears to have improved with the Brovana and budesonide treatment, which we will continue. Otherwise, try to arrange for home nocturnal ventilation for chronic respiratory failure. Job ID: [id number]
[2018-12-08] MEDS: guaiFENesin 200 MG TAB PO SCH ×3 (08:39→20:31)
[2018-12-08] MEDS: predniSONE 20 MG TAB PO SCH (08:39)
[2018-12-08] MEDS: Enoxaparin Sodium 40 MG/0.4 ML SYRINGE SC SCH (08:41)
[2018-12-08] MEDS: Lisinopril 20 MG TAB PO SCH (08:41)
[2018-12-08] MEDS: Ondansetron ODT 4 MG TAB PO PRN (08:46)
--- NOTE | 2018-12-08 10:46 | PDOC.PN ---
- Subjective Encounter Start Date: 12/08/18 Encounter Start Time: 10:43 Subjective: still sob with minimal exertion - Objective Resuscitation Status - Order Detail: 12/02/18 22:26 Resuscitation Status Routine Resuscitation Status: FULL: Full Resuscitation MAR Reviewed: Yes Vital Signs & Weight: Vital Signs (12 hours) Temp Pulse Resp BP Pulse Ox 12/08/18 08:41 128/67 12/08/18 07:53 99 12/08/18 07:05 97.0 F L 12/08/18 06:59 99 12/08/18 06:33 116 H 21 H 99 12/08/18 04:00 97.5 F L 12/08/18 02:20 100 17 100 12/08/18 00:00 97.4 F L Weight Weight 141 lb Most Recent Monitor Data Heart Rate from ECG 132 NIBP 102/68 NIBP BP-Mean 79 Respiration from ECG 19 SpO2 98 I&O: 12/07/18 12/08/18 12/09/18 06:59 06:59 06:59 Intake Total 720 700 Output Total 750 675 Balance -30 25 Result Diagrams: 12/08/18 04:26 12/08/18 04:26 Phys Exam - Physical Examination Neck: no JVD coarse BS, rhonchi Cardiovascular: RRR Gastrointestinal: soft, positive bowel sounds Musculoskeletal: edema present Dx/Plan (1) COPD exacerbation Code(s): J44.1 - CHRONIC OBSTRUCTIVE PULMONARY DISEASE W (ACUTE) EXACERBATION Status: Acute (2) Acute on chronic respiratory failure with hypoxia and hypercapnia Code(s): J96.21 - ACUTE AND CHRONIC RESPIRATORY FAILURE WITH HYPOXIA; J96.22 - ACUTE AND CHRONIC RESPIRATORY FAILURE WITH HYPERCAPNIA Status: Acute (3) Anxiety Code(s): F41.9 - ANXIETY DISORDER, UNSPECIFIED Status: Chronic (4) Hypertension Code(s): I10 - ESSENTIAL (PRIMARY) HYPERTENSION Status: Chronic Qualifiers: Hypertension type: essential hypertension Qualified Code(s): I10 - Essential (primary) hypertension (5) Pulmonary nodule Code(s): R91.1 - SOLITARY PULMONARY NODULE Status: Chronic (6) CKD (chronic kidney disease) stage 3, GFR 30-59 ml/min Status: Chronic - Plan end stage COPD on maximal tx, Dr Abraham discussing home vent support -: cont nebs, steroids, LABA, etc * .
--- NOTE | 2018-12-08 12:15 | PRG ---
DATE OF SERVICE: 12/08/2018 ADDENDUM: Stephanie Stephens is an 83-year-old female. Lengthy discussed with the patient today. I am ordering home noninvasive ventilation for nighttime and as needed daytime use as a traditional home BiPAP is insufficient for the patient disease process. The patient has no clinical evidence of obstructive sleep apnea at this stage. As noted above, she was still wheezing, but is improved. IMPRESSION: 1. Chronic respiratory failure. 2. Chronic obstructive lung disease exacerbation. PLAN: Home noninvasive ventilation for nighttime as needed. Daytime is being ordered. She will be discharged when she is stable. Job ID: [id number]
--- NOTE | 2018-12-08 14:14 | CON ---
DATE OF CONSULTATION: 12/08/2018 REASON FOR CONSULTATION: Tachycardia. HISTORY OF PRESENT ILLNESS: Ms. Stephens is a very pleasant 83-year-old black female, who comes to the hospital for shortness of breath. She has a history of COPD and bronchial asthma and was admitted and diagnosed with COPD exacerbation with bronchitis. Followed by Dr. Abraham as an outpatient and been followed here in the hospital as well. She has been on telemetry and was found to be in sinus tachycardia throughout her hospital stay, heart rate anywhere from the 100s to 130s. More recently, she has been throwing some PVCs, so Cardiology is being consulted to make sure there is no other rhythm that would be concerning. Ms. Stephens denies any chest pain, tightness, or pressure. Her shortness of breath is closer to baseline, but still present. She has not had any syncope or presyncope. She used to having her heart go a little bit faster when she gets nebulizations. PAST MEDICAL HISTORY: 1. COPD. 2. Bronchial asthma. 3. Hypertension. 4. Anxiety. PAST SURGICAL HISTORY: 1. Tonsillectomy. 2. Tumor removal, which was benign. 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 No alcohol or drugs. OUTPATIENT MEDICATIONS: Include: 1. Guaifenesin. 2. Mucinex. 3. Spiriva. 4. Lisinopril 20 mg a day. 5. Albuterol inhaler p.r.n. 6. Nebulized albuterol p.r.n. ALLERGIES: NO KNOWN DRUG ALLERGIES. REVIEW OF SYSTEMS: A 12-point review of systems was done and was found to be negative unless stated in the history of present illness. PHYSICAL EXAMINATION: VITAL SIGNS: Temperature 97.0, pulse 119, respiratory rate 24, saturating 97% on 3 L, and blood pressure 113/70. GENERAL: Awake, alert, and oriented x3, in no distress. HEENT: Normocephalic and atraumatic. NECK: Supple. LUNGS: Markedly reduced breath sounds bilaterally. CARDIOVASCULAR: S1 and S2, tachycardic in the 110s. Distant heart sounds difficult to hear for any murmurs. ABDOMEN: Soft. Positive bowel sounds. EXTREMITIES: No edema. SKIN: Warm and dry. LABORATORY DATA: Laboratory work was reviewed. CBC, coags, ABGs, and chemistries were reviewed. Telemetry strips and EKGs were reviewed. Most recent echocardiogram was back in 2013 and showed a normal EF with diastolic dysfunction and mild MR and mild TR. CT of the thorax on admission showed no evidence of pulmonary embolus. There is nodule in left mid lung measures 1 cm, chronic lung parenchymal changes with interstitial thickening and hyperexpansion consistent with COPD, mediastinal and hilar adenopathy, and bilateral adrenal hyperplasia. ASSESSMENT AND PLAN: 1. Tachycardia, most likely sinus tachycardia. We will repeat an EKG to have hopefully a clear image as the one she had on admission has a lot of baseline artifact and is hard to tell. 2. Premature ventricular contractions: Rare PVCs. No sustained or any nonsustained ventricular tachycardia. I would not treat this as they are asymptomatic and they are minimal. 3. We will get an echocardiogram to assess LV function, valvular structures, and right-sided chambers. 4. We will follow. Job ID: [id number]
--- NOTE | 2018-12-08 17:21 | EKG ---
Test Reason : Blood Pressure : / mmHG Vent. 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
[2018-12-09] MEDS: Arformoterol 15 MCG/2 ML NEB NEB SCH ×2 (07:44→18:34)
[2018-12-09] MEDS: Budesonide 0.5 MG/2 ML NEB INH SCH ×2 (07:44→18:35)
--- NOTE | 2018-12-09 07:49 | PDOC.PN ---
- Subjective Encounter Start Date: 12/09/18 Encounter Start Time: 07:46 Subjective: still tachynic, on Bipap intermittently - Objective Resuscitation Status - Order Detail: 12/02/18 22:26 Resuscitation Status Routine Resuscitation Status: FULL: Full Resuscitation MAR Reviewed: Yes Vital Signs & Weight: Vital Signs (12 hours) Temp 12/09/18 07:24 97.6 F 12/09/18 03:51 97.8 F 12/08/18 23:44 97.3 F L 12/08/18 19:57 97.5 F L Weight Weight 141 lb Most Recent Monitor Data Heart Rate from ECG 104 NIBP 119/82 NIBP BP-Mean 94 Respiration from ECG 19 SpO2 100 I&O: 12/08/18 12/09/18 12/10/18 06:59 06:59 06:59 Intake Total 700 1450 Output Total 675 1650 Balance 25 -200 Result Diagrams: 12/08/18 04:26 12/08/18 04:26 Phys Exam - Physical Examination Constitutional: NAD Neck: no JVD post rales, wheezes Cardiovascular: RRR, no significant murmur Gastrointestinal: soft, positive bowel sounds Musculoskeletal: no edema Dx/Plan (1) COPD exacerbation Code(s): J44.1 - CHRONIC OBSTRUCTIVE PULMONARY DISEASE W (ACUTE) EXACERBATION Status: Acute (2) Acute on chronic respiratory failure with hypoxia and hypercapnia Code(s): J96.21 - ACUTE AND CHRONIC RESPIRATORY FAILURE WITH HYPOXIA; J96.22 - ACUTE AND CHRONIC RESPIRATORY FAILURE WITH HYPERCAPNIA Status: Acute (3) Anxiety Code(s): F41.9 - ANXIETY DISORDER, UNSPECIFIED Status: Chronic (4) Hypertension Code(s): I10 - ESSENTIAL (PRIMARY) HYPERTENSION Status: Chronic Qualifiers: Hypertension type: essential hypertension Qualified Code(s): I10 - Essential (primary) hypertension (5) Pulmonary nodule Code(s): R91.1 - SOLITARY PULMONARY NODULE Status: Chronic (6) CKD (chronic kidney disease) stage 3, GFR 30-59 ml/min Status: Chronic - Plan no real change, still tachycardic with nebs, activity on any level, -: cont agressive tx, discuss with Dr Abraham * .
--- NOTE | 2018-12-09 09:22 | PRG ---
DATE OF SERVICE: 12/09/2018 SUBJECTIVE: This morning, she is better, but she is still tachy in the 130, . OBJECTIVE: VITAL SIGNS: Saturations 90% on room air, respiratory rate 18, and blood pressure 119/82. CHEST: Decreased breath sounds. Minimal wheezing. CARDIAC: Normal S1 and S2. No gallops. ABDOMEN: No masses. IMPRESSION: 1. Severe chronic obstructive pulmonary disease. 2. Sinus tachycardia. 3. Major anxiety. 4. Respiratory failure. PLAN: We will arrange for outpatient noninvasive ventilation at nighttime since BiPAP not of much benefit. Await input from Cardiology. So far, echo shows normal LV function. Hopefully disposition, home in the next 24 to 48 hours. Job ID: [id number]
[2018-12-09] MEDS: Lisinopril 20 MG TAB PO SCH (09:33)
[2018-12-09] MEDS: guaiFENesin 200 MG TAB PO SCH ×3 (09:33→21:57)
[2018-12-09] MEDS: Enoxaparin Sodium 40 MG/0.4 ML SYRINGE SC SCH (09:34)
[2018-12-09] MEDS: predniSONE 20 MG TAB PO SCH (09:34)
[2018-12-10] MEDS: Budesonide 0.5 MG/2 ML NEB INH SCH (07:16)
[2018-12-10] MEDS: Arformoterol 15 MCG/2 ML NEB NEB SCH (07:26)
[2018-12-10] MEDS: predniSONE 20 MG TAB PO SCH (08:46)
[2018-12-10] MEDS: Enoxaparin Sodium 40 MG/0.4 ML SYRINGE SC SCH (08:47)
[2018-12-10] MEDS: Lisinopril 20 MG TAB PO SCH (08:47)
[2018-12-10] MEDS: guaiFENesin 200 MG TAB PO SCH ×3 (08:50→21:29)
--- NOTE | 2018-12-10 09:13 | PRG ---
DATE OF SERVICE: 12/10/2018 SUBJECTIVE: Stephanie Stephens is better this morning. She would like to go home. Everything has been arranged for home including noninvasive ventilation for nighttime and as needed to use. OBJECTIVE: VITAL SIGNS: Blood pressure is 128/67, pulse is 111 and tachycardic, sats are 98 on 3 L, respiratory rate 18. CHEST: Minimal wheezing, prolonged expiration. CARDIAC: Normal S1 and S2. No gallops. ABDOMEN: No mass. IMPRESSION: End-stage chronic obstructive pulmonary disease, respiratory failure, major anxiety. PLAN: She would like to go home on tapering dose of prednisone and DuoNeb, but she did not want the Brovana and budesonide. She can see me in the office in several weeks. Job ID: [id number]
--- NOTE | 2018-12-10 11:45 | PDOC.PN ---
- Subjective Encounter Start Date: 12/10/18 Encounter Start Time: 07:00 -: old records requested/rev Patient seen and examined. No new complaints. No overnight events pulmonary cleared her for discharge, but she wants to go home tomorrow - Objective Resuscitation Status - Order Detail: 12/02/18 22:26 Resuscitation Status Routine Resuscitation Status: FULL: Full Resuscitation MAR Reviewed: Yes Vital Signs & Weight: Vital Signs (12 hours) Temp Pulse Resp BP Pulse Ox 12/10/18 10:27 97.2 F L 12/10/18 08:47 128/67 12/10/18 07:26 111 H 28 H 98 12/10/18 07:24 99.0 F 12/10/18 07:17 98 12/10/18 07:16 111 H 28 H 98 12/10/18 07:13 111 H 28 H 98 12/10/18 03:59 97.8 F 12/10/18 00:00 97.3 F L 12/09/18 23:48 103 H 19 98 Weight Weight 141 lb Most Recent Monitor Data Heart Rate from ECG 116 NIBP 134/75 NIBP BP-Mean 94 Respiration from ECG 22 SpO2 99 I&O: 12/09/18 12/10/18 12/11/18 06:59 06:59 06:59 Intake Total 1450 1340 Output Total 1650 1400 Balance -200 -60 Result Diagrams: 12/08/18 04:26 12/08/18 04:26 Radiology Reviewed by me: Yes EKG Reviewed by me: Yes Phys Exam - Physical Examination Constitutional: NAD HEENT: PERRLA, moist MMs, sclera anicteric Neck: no JVD, supple Respiratory: no wheezing, no rales, no rhonchi reduced air entry Cardiovascular: RRR, no significant murmur, no rub Gastrointestinal: soft, non-tender, no distention Musculoskeletal: no edema, pulses present Neurological: non-focal, normal sensation Lymphatic: no nodes Psychiatric: normal affect, A&O x 3 Skin: no rash, normal turgor Dx/Plan (1) Acute on chronic respiratory failure with hypoxia and hypercapnia Code(s): J96.21 - ACUTE AND CHRONIC RESPIRATORY FAILURE WITH HYPOXIA; J96.22 - ACUTE AND CHRONIC RESPIRATORY FAILURE WITH HYPERCAPNIA Status: Acute (2) COPD exacerbation Code(s): J44.1 - CHRONIC OBSTRUCTIVE PULMONARY DISEASE W (ACUTE) EXACERBATION Status: Acute (3) CKD (chronic kidney disease) stage 3, GFR 30-59 ml/min Status: Chronic (4) Hypertension Code(s): I10 - ESSENTIAL (PRIMARY) HYPERTENSION Status: Chronic Qualifiers: Hypertension type: essential hypertension Qualified Code(s): I10 - Essential (primary) hypertension - Plan cont current plan of care, continue antibiotics, PT/OT, respiratory therapy * pt is now baseline * medication reviewed as below * symptomatic treatment * will discharge tomorrow. Review of Systems - Review of Systems ENT: negative: Ear Pain, Ear Discharge, Nose Pain, Nose Discharge, Nose Congestion, Mouth Pain, Mouth Swelling, Throat Pain, Throat Swelling, Other Respiratory: Shortness of Breath, SOB with Excertion. negative: Cough, Dry, Hemoptysis, Pleuritic Pain, Sputum, Wheezing Cardiovascular: negative: chest pain, palpitations, orthopnea, paroxysmal nocturnal dyspnea, edema, light headedness, other Gastrointestinal: negative: Nausea, Vomiting, Abdominal Pain, Diarrhea, Constipation, Melena, Hematochezia, Other Genitourinary: negative: Dysuria, Frequency, Incontinence, Hematuria, Retention , Other Musculoskeletal: negative: Neck Pain, Shoulder Pain, Arm Pain, Back Pain, Hand Pain, Leg Pain, Foot Pain, Other - Medications/Allergies Allergies/Adverse Reactions: Allergies Allergy/AdvReac Type Severity Reaction Status Date / Time No Known Allergies Allergy Verified 05/18/14 21:59 Medications: Current Medications Acetaminophen (Tylenol) 650 mg PO Q4H PRN PRN Reason: Headache/Fever/Mild Pain (1-3) Albuterol/Ipratropium (Duoneb) 3 ml NEB [id number] [facility] Last Admin: 12/10/18 07:13 Dose: 3 ml Alprazolam (Xanax) 0.25 mg PO QIDPRN PRN PRN Reason: Anxiety Last Admin: 12/07/18 20:36 Dose: 0.25 mg Enoxaparin Sodium (Lovenox) 40 mg SC 0900 [facility] Last Admin: 12/10/18 08:47 Dose: 40 mg Guaifenesin (Organ-I Nr) 400 mg PO TID [facility] Last Admin: 12/10/18 08:50 Dose: 400 mg Lisinopril (Zestril) 20 mg PO DAILY [facility] Last Admin: 12/10/18 08:47 Dose: 20 mg Ondansetron HCl (Zofran Odt) 4 mg PO Q6H PRN PRN Reason: Nausea/Vomiting Last Admin: 12/08/18 08:46 Dose: 4 mg Ondansetron HCl (Zofran) 4 mg IVP Q6H PRN PRN Reason: Nausea/Vomiting Prednisone (Prednisone) 40 mg PO QA-[facility] Last Admin: 12/10/18 08:46 Dose: 40 mg Sodium Chloride (Flush - Normal Saline) 10 ml IVF Q12HR [facility] Last Admin: 12/10/18 08:47 Dose: 10 ml Sodium Chloride (Flush - Normal Saline) 10 ml IVF PRN PRN PRN Reason: Saline Flush Sterile Water (Bacteriostatic Water) 1 ml FS PRN PRN PRN Reason: RECONSTITUTION Last Admin: 12/03/18 05:23 Dose: 1 ml
[2018-12-11 07:03] VITALS: TEMP 97.6
[2018-12-11] MEDS: Lisinopril 20 MG TAB PO SCH (09:26)
[2018-12-11] MEDS: guaiFENesin 200 MG TAB PO SCH (09:26)
[2018-12-11] MEDS: predniSONE 20 MG TAB PO SCH (09:26)
[2018-12-11] MEDS: Enoxaparin Sodium 40 MG/0.4 ML SYRINGE SC SCH (09:27)
--- NOTE | 2018-12-11 10:37 | PDOC.PN ---
- Subjective Encounter Start Date: 12/11/18 Encounter Start Time: 10:15 Patient seen and examined. No new complaints. No overnight events - Objective Resuscitation Status - Order Detail: 12/02/18 22:26 Resuscitation Status Routine Resuscitation Status: FULL: Full Resuscitation MAR Reviewed: Yes Vital Signs & Weight: Vital Signs (12 hours) Temp Pulse Resp BP Pulse Ox 12/11/18 09:26 128/67 12/11/18 09:08 99 12/11/18 09:06 109 H 24 H 12/11/18 07:03 97.6 F 12/11/18 04:00 98.4 F 12/11/18 00:00 98.4 F 12/10/18 23:12 102 H 16 100 Weight Weight 141 lb Most Recent Monitor Data Heart Rate from ECG 101 NIBP 97/65 NIBP BP-Mean 75 Respiration from ECG 20 SpO2 100 I&O: 12/10/18 12/11/18 12/12/18 06:59 06:59 07:59 Intake Total 1340 1200 Output Total 1400 1700 Balance -60 -500 Result Diagrams: 12/08/18 04:26 12/08/18 04:26 EKG Reviewed by me: Yes Phys Exam - Physical Examination Constitutional: NAD HEENT: PERRLA, moist MMs, sclera anicteric Neck: no JVD, supple Respiratory: no wheezing, no rales, no rhonchi Cardiovascular: RRR, no significant murmur, no rub Gastrointestinal: soft, non-tender, no distention, positive bowel sounds Musculoskeletal: no edema, pulses present Neurological: non-focal, normal sensation Lymphatic: no nodes Psychiatric: normal affect Skin: no rash, normal turgor Dx/Plan (1) Acute on chronic respiratory failure with hypoxia and hypercapnia Code(s): J96.21 - ACUTE AND CHRONIC RESPIRATORY FAILURE WITH HYPOXIA; J96.22 - ACUTE AND CHRONIC RESPIRATORY FAILURE WITH HYPERCAPNIA Status: Acute (2) COPD exacerbation Code(s): J44.1 - CHRONIC OBSTRUCTIVE PULMONARY DISEASE W (ACUTE) EXACERBATION Status: Acute (3) CKD (chronic kidney disease) stage 3, GFR 30-59 ml/min Status: Chronic (4) Hypertension Code(s): I10 - ESSENTIAL (PRIMARY) HYPERTENSION Status: Chronic Qualifiers: Hypertension type: essential hypertension Qualified Code(s): I10 - Essential (primary) hypertension - Plan cont current plan of care, respiratory therapy * medication reviewed as below * symptomatic treatment * see discharge alexiay. Review of Systems - Review of Systems Respiratory: negative: Cough, Dry, Shortness of Breath, Hemoptysis, SOB with Excertion, Pleuritic Pain, Sputum, Wheezing Cardiovascular: negative: chest pain, palpitations, orthopnea, paroxysmal nocturnal dyspnea, edema, light headedness, other Gastrointestinal: negative: Nausea, Vomiting, Abdominal Pain, Diarrhea, Constipation, Melena, Hematochezia, Other Genitourinary: negative: Dysuria, Frequency, Incontinence, Hematuria, Retention , Other Musculoskeletal: negative: Neck Pain, Shoulder Pain, Arm Pain, Back Pain, Hand Pain, Leg Pain, Foot Pain, Other - Medications/Allergies Allergies/Adverse Reactions: Allergies Allergy/AdvReac Type Severity Reaction Status Date / Time No Known Allergies Allergy Verified 05/18/14 21:59 Medications: Current Medications Acetaminophen (Tylenol) 650 mg PO Q4H PRN PRN Reason: Headache/Fever/Mild Pain (1-3) Albuterol/Ipratropium (Duoneb) 3 ml NEB [id number] [facility] Last Admin: 12/11/18 09:06 Dose: 3 ml Alprazolam (Xanax) 0.25 mg PO QIDPRN PRN PRN Reason: Anxiety Last Admin: 12/07/18 20:36 Dose: 0.25 mg Enoxaparin Sodium (Lovenox) 40 mg SC 0900 [facility] Last Admin: 12/11/18 09:27 Dose: 40 mg Guaifenesin (Organ-I Nr) 400 mg PO TID [facility] Last Admin: 12/11/18 09:26 Dose: 400 mg Lisinopril (Zestril) 20 mg PO DAILY [facility] Last Admin: 12/11/18 09:26 Dose: 20 mg Ondansetron HCl (Zofran Odt) 4 mg PO Q6H PRN PRN Reason: Nausea/Vomiting Last Admin: 12/08/18 08:46 Dose: 4 mg Ondansetron HCl (Zofran) 4 mg IVP Q6H PRN PRN Reason: Nausea/Vomiting Prednisone (Prednisone) 40 mg PO QAM-WM [facility] Last Admin: 12/11/18 09:26 Dose: 40 mg Sodium Chloride (Flush - Normal Saline) 10 ml IVF Q12HR [facility] Last Admin: 12/11/18 09:27 Dose: 10 ml Sodium Chloride (Flush - Normal Saline) 10 ml IVF PRN PRN PRN Reason: Saline Flush Sterile Water (Bacteriostatic Water) 1 ml FS PRN PRN PRN Reason: RECONSTITUTION Last Admin: 12/03/18 05:23 Dose: 1 ml
--- NOTE | 2018-12-11 11:03 | PRG ---
DATE OF SERVICE: 12/11/2018 SUBJECTIVE: This morning, she is better. She is going home. OBJECTIVE: VITAL SIGNS: Pulse 109, temperature 97, blood pressure 120/67. CHEST: Minimal wheezing. CARDIAC: Normal S1 and S2. No gallops. ABDOMEN: No masses. IMPRESSION: End-stage chronic obstructive pulmonary disease, hypertension, major anxiety. Tapering dose of prednisone was given. She has gotten noninvasive ventilation at nighttime. Supportive care. We will follow in the office. Job ID: [id number]
--- NOTE | 2018-12-11 11:16 | DIS ---
DATE OF ADMISSION: 12/02/2018 DATE OF DISCHARGE: 12/11/2018 PRIMARY CARE PHYSICIAN: Srinivas Kasper. DISCHARGE DISPOSITION: Home. PRIMARY DISCHARGE DIAGNOSES: Acute on chronic respiratory failure with hypoxia, chronic obstructive pulmonary disease exacerbation. SECONDARY DISCHARGE DIAGNOSES: Chronic kidney disease stage 2, hypertension. PRIMARY PROCEDURE/OPERATION: None. RADIOLOGICAL INVESTIGATION: CT angiography negative for pulmonary embolism. Chest x-ray showed chronic changes. Foot x-ray showed no acute process. Echocardiography showed normal EF. SIGNIFICANT LABORATORY DATA: WBC 11.5, hemoglobin 11.7, platelet 220. D-dimer 0.53. Sodium 132, potassium 5.0, BUN 19, creatinine 0.81, calcium 9.6. DISCHARGE MEDICATIONS: 1. ProAir HFA two puffs q.4 hourly p.r.n. 2. Albuterol nebulization q.i.d. 3. Lisinopril 20 mg daily. 4. Guaifenesin 400 mg t.i.d. 5. DuoNeb q.6 hourly. 6. Prednisone 40 mg p.o. daily for 7 days, then 20 mg daily for 7 days, and then 10 mg p.o. daily for one week. 7. Spiriva 18 mcg inhalation daily. CONTRAINDICATION: None. CODE STATUS: Full code. INPATIENT THERAPIST RADIATION: Cardiology group was following while in hospital. Pulmonary group was following while in hospital. TEST RESULTS PENDING ON DISCHARGE: None. ALLERGIES: NO KNOWN DRUG ALLERGIES. DISCHARGE PLAN: Post hospital, the patient will follow up with primary care physician as instructed. HOSPITAL COURSE: An 83-year-old female with above-mentioned medical problem, who was admitted by Dr. iWllams on December 03, 2018. Please see his H and P for further details. The patient was having increasing shortness of breath. On admission, the patient was having acute hypoxic and hypercapnic respiratory failure due to COPD exacerbation. She required BiPAP. She required IMCU admission. Pulmonary group was consulted for persistent tachycardia. Cardiology group was consulted. Echocardiography was obtained. Echocardiography showed normal EF. The patient's tachycardia was related to her COPD exacerbation. During this admission, the patient required prolonged hospital stay. During that, she was treated optimally for COPD flare-up. By the time of discharge, the patient is up to her baseline. Pulmonary cleared her for discharge. This patient is continuously high risk for recurrent admission because of her severe COPD. The patient is seen and examined at bedside today. Please see my progress note from today for further details. If Pulmonary okay, then we will consider discharging her home today. The patient is also agreed with discharge today. Job ID: [id number]
== END 2018-12-11 10:54 | disposition home or self-care (01) | DRG 189 ==
LOC: ERS 15:03 → IMCU/EMU 18:00
PROVIDERS: ADMIT Emergency Medicine; ATTEND Emergency Medicine
PROC: 5A09457 Assistance with Respiratory Ventilation, 24-96 Consecutive Hours, Continuous Positive Airway Pressure (ICD-10-PCS; principal; 2018-12-02)
DX: J96.21 Acute and chronic respiratory failure with hypoxia (principal); J44.1 Chronic obstructive pulmonary disease with (acute) exacerbation; E87.4 Mixed disorder of acid-base balance; E87.1 Hypo-osmolality and hyponatremia; J96.22 Acute and chronic respiratory failure with hypercapnia; R73.9 Hyperglycemia, unspecified; F41.9 Anxiety disorder, unspecified; I12.9 Hypertensive chronic kidney disease with stage 1 through stage 4 chronic kidney disease, or unspecified chronic kidney disease; N18.2 Chronic kidney disease, stage 2 (mild); I49.3 Ventricular premature depolarization; R91.1 Solitary pulmonary nodule; D64.9 Anemia, unspecified; M79.672 Pain in left foot; Z87.891 Personal history of nicotine dependence; Z99.81 Dependence on supplemental oxygen; Z79.899 Other long term (current) drug therapy; Z79.51 Long term (current) use of inhaled steroids; Z79.52 Long term (current) use of systemic steroids
CPT/HCPCS: 36415; 71045; 71275; 80048; 80053; 82330; 82803; 83735; 83880; 84100; 84484; 84550; 85025; 85379; 93005; 93010; 93306; 94644; 94660; 94667; 94668; 96365; J1650; J1940; J1956; J2920; J3475; J7050; J7611; J7620; J7626; Q0162; Q9966

== ENCOUNTER 2020-06-01 12:24 | Outpatient (CLI) | payer MEDICARE, MEDICAID ==
--- NOTE | 2020-06-01 13:03 | CT ---
CT OF THE THORAX WITHOUT IV CONTRAST INDICATION: 85-year-old female with history of lung nodule COMPARISON: Prior CTA of the chest dated December 02, 2018. FINDINGS: LUNGS: The spiculated pulmonary nodule within the apical posterior segment of the left upper lobe is stable measuring 9 mm. There is a new conglomeration of noncalcified pulmonary nodules within the anterior segment of the right upper lobe many of which are sub-4 mm in size. The largest measures 4.6 mm on image 44 series 3. There is new airspace consolidation within the superior segment of the left lower lobe suspicious for pneumonia. There is stable bronchiectasis and subsegmental volume loss involving the lingula as well as the medial right middle lobe. There is a stable 6 mm pulmonary nodule in the right lower lobe on image 126 of series 3. There are scattered moderate to severe centr ilobular and paraseptal emphysema. Pleural spaces: Clear Lymph nodes: No pathologically enlarged lymph nodes. Heart and great vessels: There are coronary artery and thoracic aortic calcifications. Upper abdomen: There is a stable 1.4 cm left adrenal adenoma. The remainder of the upper abdomen appe ars within normal limits. Osseous structures: No acute osseous abnormality. IMPRESSION: 1. New airspace consolidation of the superior segment of the left lower lobe is suspicious for pneumo la. Recommend CT follow-up in 6-8 weeks to document resolution. 2. New small pulmonary nodules within the right upper lobe. These may be inflammatory or infectious i n nature. Follow-up in 6-8 weeks to document resolution is recommended. 3. Stable spiculated pulmonary nodule the left upper lobe measuring 9 mm. There is a stable right low er lobe pulmonary nodule measuring 6 mm. 4. Stable emphysema. 5. Stable left adrenal adenoma
== END 2020-06-01 12:25 | disposition home or self-care (01) ==
LOC: BICCT 12:24
PROVIDERS: ATTEND Internal Medicine Pulmonary Disease
DX: R91.8 Other nonspecific abnormal finding of lung field (principal); J43.9 Emphysema, unspecified; D35.02 Benign neoplasm of left adrenal gland
CPT/HCPCS: 71250

== ENCOUNTER 2020-07-11 11:46 | Outpatient (CLI) | payer MEDICARE, MEDICAID ==
--- NOTE | 2020-07-11 14:03 | RAD ---
PA AND LATERAL VIEWS CHEST: Date: 07/11/2020 HISTORY: Dyspnea. FINDINGS/IMPRESSION: The heart size is normal. The aorta is tortuous. The lungs are well expanded. The patchy air space di sease in the posterior aspect of the left upper lobe noted on the CT scan of 06/01/2020 is stable. No new focal areas of consolidation are seen. 4.0 mm right upper lobe lung nodule is stable. POS: AH
== END 2020-07-11 11:47 | disposition home or self-care (01) ==
LOC: BICRAD 11:46
PROVIDERS: ATTEND Internal Medicine Pulmonary Disease
DX: R06.00 Dyspnea, unspecified (principal); R91.1 Solitary pulmonary nodule; J98.4 Other disorders of lung; Q25.46 Tortuous aortic arch
CPT/HCPCS: 71046

== ENCOUNTER 2020-07-31 10:15 | Outpatient (CLI) | payer MEDICARE, MEDICAID ==
--- NOTE | 2020-07-31 14:47 | PET ---
Radionucleotide PET scan with CT attenuation correction HISTORY: Solitary pulmonary nodule. COMPARISON: CT chest 05/24/2020. FINDINGS: The focal area of soft tissue density mass at the superior segment left lower lobe is now m ore focal, solid, and spiculated than on the most recent CT chest. It is now 2.6 cm x 1.9 cm greatest diameters on the axial images and abuts the posterior aspect of the major fissure. Maximum S UV 11.3 (on body sequences). The tiny nodule within the left upper lobe shows max SUV 0.8. Tiny nodules in the right lung are too small for PET characterization. A 1.6 cm right neck lymph node medial to the right parotid tail shows max SUV 9.9. An immediately lat eral and superior 0.7 cm lymph node shows maximum SUV 6.2. (On the head/neck sequences) On the nondiagnostic CT attenuation correction images, a non-hypermetabolic superficial subcutaneous 1.6 cm nodule at the right para midline back likely represents a sebaceous cyst. There is prominent calcification throughout the arterial structures. Diverticula arise from the colon without adjacent inflammation. At the right side of the uterus in expected location of the right adnexa is a large, lobulated mixed soft tissue and fluid density mass that displaces the rectum leftward. It is 7.9 cm x 7.8 cm greatest diameters on the axial images. IMPRESSION : Hypermetabolic mass within the superior segment left lower lobe is favored to represent neoplasm give n the activity and appearance. It would be amenable to CT-guided biopsy if needed. Smaller bilateral nodules are not shown to be hypermetabolic but are below the threshold for sensitivity on P ET imaging. Hypermetabolic right neck lymph nodes could represent metastatic disease. They would not be amenable to percutaneous sampling. Large non-hypermetabolic right pelvic mass, involving the uterus and/or adnexa. Please correlate with gynecologic history and consider dedicated pelvic sonogram. Atherosclerosis. Diverticulosis.
== END 2020-07-31 10:16 | disposition home or self-care (01) ==
LOC: PET 10:15
PROVIDERS: ATTEND Internal Medicine Pulmonary Disease
DX: R91.1 Solitary pulmonary nodule (principal); R91.8 Other nonspecific abnormal finding of lung field; R19.00 Intra-abdominal and pelvic swelling, mass and lump, unspecified site; I70.90 Unspecified atherosclerosis; K57.30 Diverticulosis of large intestine without perforation or abscess without bleeding
CPT/HCPCS: 78815; A9552

== ENCOUNTER 2020-08-09 08:25 | Day surgery (SDC) | payer MEDICARE, MEDICAID ==
[2020-08-09 08:57] LABS: #Basophils 0.1 thou/uL (0.0-0.2); #Eosinphils 0.2 thou/uL (0.0-0.7); #Lymphocytes 1.6 thou/uL (1.20-3.40); #Monocytes 0.6 thou/uL (0.11-0.59); #Neutrophils 6.2 thou/uL (1.40-6.50); %Eosinophils 2.4 % (0.0-10.0); %Lymphocytes 18.1 % (21.0-51.0); %Monocytes 7.1 % (0.0-10.0); %Neutrophils 71.5 % (42.0-75.0); Mean Corpuscular HGB CONC 32.2 g/dL (32.0-36.0); Mean Corpuscular Hemoglobin 30.1 pg (27.0-31.0); Mean Corpuscular Volume 93.6 fL (78.0-98.0); Mean Platelet Volume 7.7 fL (7.4-10.4); Platelet Count 255 thou/uL (130-400); RBC Distribution Width 12.6 % (11.5-14.5); Red Blood Cell (RBC) Count 3.98 mill/uL (4.20-5.40); White Blood Cell (WBC) Count 8.7 thou/uL (4.8-10.8)
[2020-08-09 08:59] LABS: INR-International Normal Ratio 0.9; Prothrombin Time 12.6 sec (12.0-14.7)
[2020-08-09 09:00] LABS: PTT 29.4 sec (22.9-36.1)
[2020-08-09 09:56] VITALS: BP 138/88; TEMP 98.5
--- NOTE | 2020-08-09 12:24 | RAD ---
Portable frontal chest radiograph: 08/09/2020 COMPARISON: 07/11/2020 HISTORY: Evaluate chest following lung biopsy FINDINGS: There is a lung mass in the left apex status post biopsy with no evidence for pneumothorax. Heart and mediastinal contours are stable. Increased linear interstitial density and pulmonary hyperinflation consistent with COPD. 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 No evidence for left-sided p neumothorax following biopsy.
--- NOTE | 2020-08-09 13:09 | CT ---
Left lung mass biopsy CT-guided HISTORY: Left lung mass. FINDINGS: After explaining the procedure and answering all questions, images CT imaging of the upper chest was performed. Sterile technique, buffered local anesthesia, CT guidance, and a left posterior intercostal approach were used to carefully advance the tip of a 19-gauge trocar needle int o the spiculated mass at the apex of the superior segment left lower lobe. Approach and direction carefully planned to avoid puncturing the pleura with aerated intervening lung and to avoid the pleur al fissure. Position was confirmed with CT. A total of 2 20-gauge core biopsy specimens were obtained and [facility] submitted pathology for evaluation. Needle was removed. No evidence of complication. Patient tolerated the procedure well and was returne d to the holding area in good condition for further monitoring. IMPRESSION : Technically successful CT-guided biopsy left lower lobe mass. Pathology is pending.
--- NOTE | 2020-08-09 13:27 | RAD ---
Upright expiratory frontal radiograph of the chest 08/09/2020 at 1:03 PM COMPARISON: 08/09/2020 at 11:24 AM HISTORY: Evaluate chest following left lung biopsy FINDINGS: Stable heart and mediastinal contours. Descending thoracic aorta is tortuous. Stable left u pper lobe/apical mass suspicious for bronchogenic carcinoma. No pneumothorax seen following biopsy. IMPRESSION: No pneumothorax.
--- NOTE | 2020-08-10 10:47 | CT ---
Left lung mass biopsy CT-guided HISTORY: Left lung mass. FINDINGS: After explaining the procedure and answering all questions, images CT imaging of the upper chest was performed. Sterile technique, buffered local anesthesia, CT guidance, and a left posterior intercostal approach were used to carefully advance the tip of a 19-gauge trocar needle int o the spiculated mass at the apex of the superior segment left lower lobe. Approach and direction carefully planned to avoid puncturing the pleura with aerated intervening lung and to avoid the pleur al fissure. Position was confirmed with CT. A total of 2 20-gauge core biopsy specimens were obtained and [facility] submitted pathology for evaluation. Needle was removed. No evidence of complication. Patient tolerated the procedure well and was returne d to the holding area in good condition for further monitoring. IMPRESSION : Technically successful CT-guided biopsy left lower lobe mass. Pathology is pending. Transcribed Date/Time: 08/10/2020 10:47 AM
== END 2020-08-09 13:45 | disposition home or self-care (01) ==
LOC: CT 08:25
PROVIDERS: ATTEND Internal Medicine Pulmonary Disease
PROC: 0BBJ3ZX Excision of Left Lower Lung Lobe, Percutaneous Approach, Diagnostic (ICD-10-PCS; principal; 2020-08-09)
DX: J84.10 Pulmonary fibrosis, unspecified (principal); I10 Essential (primary) hypertension; J44.9 Chronic obstructive pulmonary disease, unspecified; Z79.899 Other long term (current) drug therapy; Z87.891 Personal history of nicotine dependence
CPT/HCPCS: 32405; 36415; 71045; 77002; 85025; 85610; 85730; 88305; 88312

== ENCOUNTER 2020-11-15 11:02 | Outpatient (CLI) | payer MEDICARE, MEDICAID | END 2020-11-15 11:03 | disposition home or self-care (01) | LOC: BICRAD 11:02 | PROVIDERS: ATTEND Internal Medicine Pulmonary Disease | DX: R06.00 Dyspnea, unspecified (principal); R91.8 Other nonspecific abnormal finding of lung field; J92.9 Pleural plaque without asbestos | CPT/HCPCS: 71046 ==

== ENCOUNTER 2021-02-12 16:07 | Outpatient (CLI) | payer MEDICARE, MEDICAID | END 2021-02-12 16:08 | disposition home or self-care (01) | LOC: BICRAD 16:07 | PROVIDERS: ATTEND Internal Medicine Pulmonary Disease | DX: R06.00 Dyspnea, unspecified (principal) | CPT/HCPCS: 71046 ==

== ENCOUNTER 2022-02-04 08:15 | Emergency (ER) | payer MEDICAID, MEDICARE ==
[2022-02-04] MEDS ORDERED: Iopamidol-370 76% 500 ML 1 ML ONE (08:54)
[2022-02-04 08:55] LABS: #Basophils 0.1 thou/uL (0.0-0.2); #Eosinphils 0.3 thou/uL (0.0-0.7); #Lymphocytes 1.2 thou/uL (1.20-3.40); #Neutrophils 9.3 thou/uL (1.40-6.50); %Basophils 0.4 % (0.0-1.0); %Eosinophils 2.7 % (0.0-10.0); %Monocytes 8.5 % (0.0-10.0); %Neutrophils 78.4 % (42.0-75.0); Hemoglobin 11.6 g/dL (12.0-16.0); Mean Corpuscular Hemoglobin 30.7 pg (27.0-31.0); Mean Corpuscular Volume 95.9 fL (78.0-98.0); Mean Platelet Volume 6.5 fL (7.4-10.4); Platelet Count 303 thou/uL (130-400); RBC Distribution Width 11.9 % (11.5-14.5); Red Blood Cell (RBC) Count 3.77 mill/uL (4.20-5.40); White Blood Cell (WBC) Count 11.9 thou/uL (4.8-10.8)
[2022-02-04 09:07] LABS: ALT (SGPT) 14 U/L (8-55); AST (SGOT) 15 U/L (5-34); Albumin 3.8 g/dL (3.4-4.8); Alkaline Phosphatase 77 U/L (40-110); Anion Gap 13 mmol/L (10-20); BUN (Urea Nitrogen) 12 mg/dL (9.8-20.1); Bilirubin, Total 0.3 mg/dL (0.2-1.2); Calc. Creatinine Clearance 0 mL/min (70-130); Calcium 9.5 mg/dL (7.8-10.44); Carbon Dioxide 27 mmol/L (23-31); Chloride 102 mmol/L (98-107); Globulin 3.1 g/dL (2.4-3.5); Glucose 93 mg/dL (83-110); Potassium 4.3 mmol/L (3.5-5.1); Protein, Total 6.9 g/dL (5.8-8.1); Sodium 138 mmol/L (136-145)
[2022-02-04] MEDS ORDERED: Ketorolac Tromethamine 30 MG/ML VIAL ONE (09:21)
[2022-02-04 11:01] LABS: Bacteria/HPF None Seen HPF (None Seen); Bilirubin Negative (Negative); Blood, Urine Negative (Negative); Clarity Clear (Clear); Glucose, Urine (Dipstick) Normal (Negative); Ketone, Urine Negative (Negative); Leukocyte 25 Leu/uL (Negative); Nitrite Negative (Negative); Protein, Urine (Dipstick) Negative (Neg-Trace); RBC/HPF None Seen HPF (0-3); Specific Gravity, Urine 1.029 (1.002-1.036); Squamous Epithelial 0-3 HPF (0-3); Urobilinogen Normal mg/dL (Less than 2); WBC/HPF 0-3 HPF (0-3)
== END 2022-02-04 11:48 | disposition home or self-care (01) ==
LOC: ERS 08:15
DX: K57.32 Diverticulitis of large intestine without perforation or abscess without bleeding (principal); K86.89 Other specified diseases of pancreas; R19.09 Other intra-abdominal and pelvic swelling, mass and lump; I10 Essential (primary) hypertension; J44.9 Chronic obstructive pulmonary disease, unspecified; Z87.891 Personal history of nicotine dependence; Z79.899 Other long term (current) drug therapy; Z79.51 Long term (current) use of inhaled steroids
CPT/HCPCS: 36415; 74177; 80053; 81003; 81015; 85025; 96374; J1885; Q9967

== ENCOUNTER 2022-08-20 06:52 | Inpatient (IN) | payer OTHER, MEDICAID ==
[2022-08-20] MEDS ORDERED: methylPREDNISolone Sod Succ/PF 125 MG/2 ML VIAL ONE (07:23)
[2022-08-20] MEDS ORDERED: Magnesium 2 GM/50 ML BAG (IN WATER) ONE (07:23)
[2022-08-20 07:57] LABS: #Basophils 0.1 thou/uL (0.0-0.2); #Eosinphils 0.2 thou/uL (0.0-0.7); #Lymphocytes 1.3 thou/uL (1.20-3.40); #Monocytes 1.1 thou/uL (0.11-0.59); #Neutrophils 8.7 thou/uL (1.40-6.50); %Basophils 0.5 % (0.0-1.0); %Eosinophils 1.6 % (0.0-10.0); %Lymphocytes 11.2 % (21.0-51.0); %Monocytes 9.5 % (0.0-10.0); %Neutrophils 77.2 % (42.0-75.0); Hemoglobin 11.7 g/dL (12.0-16.0); Mean Corpuscular HGB CONC 31.9 g/dL (32.0-36.0); Mean Corpuscular Hemoglobin 30.8 pg (27.0-31.0); Mean Corpuscular Volume 96.5 fl (78.0-98.0); Mean Platelet Volume 7.6 fL (7.4-10.4); Platelet Count 257 10x3/uL (130-400); RBC Distribution Width 11.9 % (11.5-14.5); White Blood Cell (WBC) Count 11.2 10x3/uL (4.8-10.8)
[2022-08-20 08:16] LABS: Carbon Dioxide 26 mmol/L (23-31); Chloride 101 mmol/L (98-107); Potassium 4.3 mmol/L (3.5-5.1); Sodium 134 mmol/L (136-145)
[2022-08-20 08:17] LABS: ALT (SGPT) 21 U/L (8-55); AST (SGOT) 21 U/L (5-34); Albumin 3.8 g/dL (3.4-4.8); Alkaline Phosphatase 74 U/L (40-110); Anion Gap 11 mmol/L (10-20); BUN (Urea Nitrogen) 14 mg/dL (9.8-20.1); Bilirubin, Total 0.4 mg/dL (0.2-1.2); Calc. Creatinine Clearance 0 mL/min (70-130); Calcium 9.2 mg/dL (7.8-10.44); Estimated GFR 73; Globulin 2.8 g/dL (2.4-3.5); Glucose 93 mg/dL (83-110); Protein, Total 6.6 g/dL (5.8-8.1)
[2022-08-20 10:02] LABS: SARS-CoV-2 NAA Rapid Test Not Detected (NotDetected)
[2022-08-20] MEDS ORDERED: Ondansetron ODT 4 MG TAB PO PRN (10:55)
[2022-08-20] MEDS ORDERED: Acetaminophen 325 MG TAB PO PRN (10:55)
[2022-08-20] MEDS ORDERED: Electrolyte Replacement Protocol 1 EACH FS SCH (11:00)
[2022-08-20] MEDS ORDERED: Benzonatate 100 MG CAP PO PRN (11:00)
[2022-08-20] MEDS ORDERED: Electrolyte Replacement Protocol FS PRN (11:45)
[2022-08-20 12:40] LABS: Magnesium 2.5 mg/dL (1.6-2.6); Phosphorus 2.9 mg/dL (2.3-4.7)
[2022-08-20 15:37] VITALS: BMI 25.4
[2022-08-20] MEDS: methylPREDNISolone Sod Succ 40 MG VIAL IVP SCH (18:09)
[2022-08-20] MEDS: Mometasone/Formoterol 200/5 60 PUFF INH SCH (18:31)
[2022-08-21] MEDS: methylPREDNISolone Sod Succ 40 MG VIAL IVP SCH ×4 (00:53→17:23)
[2022-08-21] MEDS ORDERED: Melatonin 3 MG TAB PO PRN (00:55)
[2022-08-21 04:40] LABS: #Lymphocytes 0.5 thou/uL (1.20-3.40); #Monocytes 0.1 thou/uL (0.11-0.59); #Neutrophils 5.2 thou/uL (1.40-6.50); %Eosinophils 0.1 % (0.0-10.0); %Lymphocytes 7.9 % (21.0-51.0); %Monocytes 2.2 % (0.0-10.0); %Neutrophils 89.8 % (42.0-75.0); Hemoglobin 10.7 g/dL (12.0-16.0); Mean Corpuscular HGB CONC 32.5 g/dL (32.0-36.0); Mean Corpuscular Hemoglobin 31.1 pg (27.0-31.0); Mean Corpuscular Volume 95.7 fl (78.0-98.0); Platelet Count 216 10x3/uL (130-400); RBC Distribution Width 11.8 % (11.5-14.5); Red Blood Cell (RBC) Count 3.44 mill/uL (4.20-5.40); White Blood Cell (WBC) Count 5.8 10x3/uL (4.8-10.8)
[2022-08-21 05:03] LABS: Anion Gap 11 mmol/L (10-20); BUN (Urea Nitrogen) 15 mg/dL (9.8-20.1); Calc. Creatinine Clearance 51 mL/min (70-130); Calcium 8.8 mg/dL (7.8-10.44); Carbon Dioxide 26 mmol/L (23-31); Chloride 101 mmol/L (98-107); Estimated GFR 74; Glucose 170 mg/dL (83-110); Magnesium 2.3 mg/dL (1.6-2.6); Potassium 4.8 mmol/L (3.5-5.1); Sodium 133 mmol/L (136-145)
[2022-08-21] MEDS: Mometasone/Formoterol 200/5 60 PUFF INH SCH ×2 (07:12→18:44)
[2022-08-21] MEDS ORDERED: Fish Oil 1,000 MG CAP PO SCH (09:00)
[2022-08-21] MEDS: Aspirin 81 mg Enteric Coated Tablet PO SCH (09:28)
[2022-08-21] MEDS: Ferrous Sulfate 325 MG TAB PO SCH (09:29)
[2022-08-21] MEDS: Enoxaparin Sodium 40 MG/0.4 ML SYRINGE SC SCH (09:30)
[2022-08-21] MEDS ORDERED: Iopamidol-370 76% 500 ML 1 ML ONE (10:35)
[2022-08-21 10:49] LABS: Free T4 (Free Thyroxine) 1.26 ng/dL (0.70-1.48)
[2022-08-21] MEDS: Nitroglycerin 0.4 MG TAB (25 Tab Bottle) SL PRN ×2 (13:08→13:38)
[2022-08-21] MEDS ORDERED: Vancomycin 1.5 GRAM/300 ML BAG 1.5 GM in Premix Bag 1 BAG IVPB SCH (16:45)
[2022-08-22] MEDS: methylPREDNISolone Sod Succ 40 MG VIAL IVP SCH ×4 (00:55→17:04)
[2022-08-22 05:05] LABS: ALT (SGPT) 19 U/L (8-55); AST (SGOT) 20 U/L (5-34); Albumin 3.4 g/dL (3.4-4.8); Alkaline Phosphatase 61 U/L (40-110); Anion Gap 11 mmol/L (10-20); BUN (Urea Nitrogen) 19 mg/dL (9.8-20.1); Bilirubin, Total 0.2 mg/dL (0.2-1.2); Calc. Creatinine Clearance 52 mL/min (70-130); Calcium 8.6 mg/dL (7.8-10.44); Carbon Dioxide 26 mmol/L (23-31); Chloride 101 mmol/L (98-107); Estimated GFR 77; Globulin 2.7 g/dL (2.4-3.5); Glucose 139 mg/dL (83-110); Magnesium 2.3 mg/dL (1.6-2.6); Potassium 4.1 mmol/L (3.5-5.1); Protein, Total 6.1 g/dL (5.8-8.1); Sodium 134 mmol/L (136-145)
[2022-08-22 05:07] LABS: Phosphorus 2.7 mg/dL (2.3-4.7)
[2022-08-22 05:38] LABS: Band 9 % (5-11); Hemoglobin 10.5 g/dL (12.0-16.0); Lymphocytes 5 % (21-51); MDiff Complete? YES; Mean Corpuscular HGB CONC 32.3 g/dL (32.0-36.0); Mean Corpuscular Hemoglobin 30.9 pg (27.0-31.0); Mean Corpuscular Volume 95.8 fl (78.0-98.0); Mean Platelet Volume 8.1 fL (7.4-10.4); Neutrophil 86 % (42-75); Platelet Count 244 10x3/uL (130-400); RBC Distribution Width 11.9 % (11.5-14.5); Red Blood Cell (RBC) Count 3.39 mill/uL (4.20-5.40); White Blood Cell (WBC) Count 11.5 10x3/uL (4.8-10.8)
[2022-08-22] MEDS: Mometasone/Formoterol 200/5 60 PUFF INH SCH ×2 (07:08→18:07)
[2022-08-22] MEDS: Enoxaparin Sodium 40 MG/0.4 ML SYRINGE SC SCH (09:57)
[2022-08-22] MEDS: Aspirin 81 mg Enteric Coated Tablet PO SCH (09:58)
[2022-08-22] MEDS: Ferrous Sulfate 325 MG TAB PO SCH (09:58)
[2022-08-22 10:44] LABS: Bacteria/HPF None Seen HPF (None Seen); Bilirubin Negative (Negative); Blood, Urine Negative (Negative); CAUTI Indications for Culture Dysuria,urgency,freq; Clarity Clear (Clear); Glucose, Urine (Dipstick) Normal (Negative); Ketone, Urine Negative (Negative); Leukocyte Negative Leu/uL (Negative); Nitrite Negative (Negative); Protein, Urine (Dipstick) Negative (Neg-Trace); RBC/HPF 0-3 HPF (0-3); Specific Gravity, Urine 1.017 (1.002-1.036); Squamous Epithelial 0-3 HPF (0-3); Urobilinogen Normal mg/dL (Less than 2); WBC/HPF 0-3 HPF (0-3); pH, Urine 6.5 (5.0-9.0)
[2022-08-22 10:46] LABS: Urine Culture Reflex No No
[2022-08-22] MEDS: Vancomycin 1 GM in Premix Bag 1 BAG IVPB SCH (16:52)
[2022-08-23] MEDS: methylPREDNISolone Sod Succ 40 MG VIAL IVP SCH ×3 (01:06→16:35)
[2022-08-23 04:18] LABS: #Lymphocytes 0.5 thou/uL (1.20-3.40); #Monocytes 0.2 thou/uL (0.11-0.59); #Neutrophils 9.3 thou/uL (1.40-6.50); %Eosinophils 0.1 % (0.0-10.0); %Lymphocytes 4.5 % (21.0-51.0); %Monocytes 2.3 % (0.0-10.0); Hemoglobin 10.6 g/dL (12.0-16.0); Mean Corpuscular HGB CONC 32.1 g/dL (32.0-36.0); Mean Corpuscular Hemoglobin 30.7 pg (27.0-31.0); Mean Corpuscular Volume 95.9 fl (78.0-98.0); Mean Platelet Volume 7.8 fL (7.4-10.4); Platelet Count 250 10x3/uL (130-400); RBC Distribution Width 11.8 % (11.5-14.5); Red Blood Cell (RBC) Count 3.43 mill/uL (4.20-5.40)
[2022-08-23 04:48] LABS: ALT (SGPT) 21 U/L (8-55); AST (SGOT) 22 U/L (5-34); Albumin 3.3 g/dL (3.4-4.8); Alkaline Phosphatase 57 U/L (40-110); Anion Gap 11 mmol/L (10-20); BUN (Urea Nitrogen) 22 mg/dL (9.8-20.1); Bilirubin, Total 0.3 mg/dL (0.2-1.2); Calc. Creatinine Clearance 55 mL/min (70-130); Calcium 8.6 mg/dL (7.8-10.44); Carbon Dioxide 27 mmol/L (23-31); Chloride 100 mmol/L (98-107); Estimated GFR 81; Globulin 2.5 g/dL (2.4-3.5); Glucose 132 mg/dL (83-110); Magnesium 2.2 mg/dL (1.6-2.6); Phosphorus 2.4 mg/dL (2.3-4.7); Potassium 3.9 mmol/L (3.5-5.1); Protein, Total 5.8 g/dL (5.8-8.1); Sodium 134 mmol/L (136-145)
[2022-08-23] MEDS: Mometasone/Formoterol 200/5 60 PUFF INH SCH ×2 (06:52→18:32)
[2022-08-23] MEDS: Aspirin 81 mg Enteric Coated Tablet PO SCH (09:56)
[2022-08-23] MEDS: guaiFENesin ER 600 MG TAB PO SCH ×2 (09:56→19:32)
[2022-08-23] MEDS: Azithromycin 250 MG TAB PO SCH (09:56)
[2022-08-23] MEDS: Ferrous Sulfate 325 MG TAB PO SCH (09:56)
[2022-08-23] MEDS: Enoxaparin Sodium 40 MG/0.4 ML SYRINGE SC SCH (09:56)
[2022-08-23 15:58] LABS: Vancomycin, Trough 8.2 ug/mL
[2022-08-23] MEDS: Vancomycin 1 GM in Premix Bag 1 BAG IVPB SCH (16:35)
[2022-08-23] MEDS ORDERED: Vancomycin HCl 500 MG in Sodium Chloride 0.9% 100 ML IVPB SCH (17:15)
[2022-08-24] MEDS: methylPREDNISolone Sod Succ 40 MG VIAL IVP SCH ×2 (01:59→09:10)
[2022-08-24] MEDS: Mometasone/Formoterol 200/5 60 PUFF INH SCH ×2 (07:05→18:54)
[2022-08-24] MEDS: Ferrous Sulfate 325 MG TAB PO SCH (09:10)
[2022-08-24] MEDS: Azithromycin 250 MG TAB PO SCH (09:10)
[2022-08-24] MEDS: Enoxaparin Sodium 40 MG/0.4 ML SYRINGE SC SCH (09:10)
[2022-08-24] MEDS: Aspirin 81 mg Enteric Coated Tablet PO SCH (09:10)
[2022-08-24] MEDS: guaiFENesin ER 600 MG TAB PO SCH ×2 (09:10→20:23)
[2022-08-24] MEDS ORDERED: methylPREDNISolone Sod Succ 40 MG VIAL IVP SCH (12:38)
[2022-08-24] MEDS: Vancomycin 1.5 GRAM/300 ML BAG 1.5 GM in Premix Bag 1 BAG IVPB SCH (18:01)
[2022-08-25] MEDS: methylPREDNISolone Sod Succ 40 MG VIAL IVP SCH ×3 (01:50→16:54)
[2022-08-25] MEDS: Mometasone/Formoterol 200/5 60 PUFF INH SCH ×2 (07:14→18:56)
[2022-08-25] MEDS: Ferrous Sulfate 325 MG TAB PO SCH (08:56)
[2022-08-25] MEDS: Aspirin 81 mg Enteric Coated Tablet PO SCH (08:57)
[2022-08-25] MEDS: Enoxaparin Sodium 40 MG/0.4 ML SYRINGE SC SCH (08:57)
[2022-08-25] MEDS: Azithromycin 250 MG TAB PO SCH (08:57)
[2022-08-25] MEDS: guaiFENesin ER 600 MG TAB PO SCH ×2 (08:57→22:19)
[2022-08-25 16:07] LABS: Vancomycin, Trough 11.2 ug/mL
[2022-08-25] MEDS: hydrALAZINE 20 MG/ML VIAL SLOW IVP PRN (16:54)
[2022-08-25] MEDS: Vancomycin 1.5 GRAM/300 ML BAG 1.5 GM in Premix Bag 1 BAG IVPB SCH (17:00)
[2022-08-26] MEDS: methylPREDNISolone Sod Succ 40 MG VIAL IVP SCH ×3 (01:23→17:43)
[2022-08-26] MEDS: Mometasone/Formoterol 200/5 60 PUFF INH SCH ×2 (07:14→18:28)
[2022-08-26] MEDS: guaiFENesin ER 600 MG TAB PO SCH ×2 (09:05→20:38)
[2022-08-26] MEDS: Ferrous Sulfate 325 MG TAB PO SCH (09:05)
[2022-08-26] MEDS: Lisinopril 5 MG TAB PO SCH (09:05)
[2022-08-26] MEDS: Azithromycin 250 MG TAB PO SCH (09:05)
[2022-08-26] MEDS: Aspirin 81 mg Enteric Coated Tablet PO SCH (09:05)
[2022-08-26] MEDS: Enoxaparin Sodium 40 MG/0.4 ML SYRINGE SC SCH (09:06)
[2022-08-26] MEDS: Ondansetron ODT 4 MG TAB PO PRN (14:50)
[2022-08-26] MEDS: hydrALAZINE 20 MG/ML VIAL SLOW IVP PRN (18:58)
[2022-08-27] MEDS: methylPREDNISolone Sod Succ 40 MG VIAL IVP SCH ×3 (01:37→17:56)
[2022-08-27] MEDS: Mometasone/Formoterol 200/5 60 PUFF INH SCH ×2 (06:57→18:25)
[2022-08-27] MEDS: Aspirin 81 mg Enteric Coated Tablet PO SCH (09:23)
[2022-08-27] MEDS: guaiFENesin ER 600 MG TAB PO SCH ×2 (09:23→20:04)
[2022-08-27] MEDS: Enoxaparin Sodium 40 MG/0.4 ML SYRINGE SC SCH (09:23)
[2022-08-27] MEDS: Lisinopril 5 MG TAB PO SCH (09:23)
[2022-08-27] MEDS: Ferrous Sulfate 325 MG TAB PO SCH (09:23)
[2022-08-27] MEDS ORDERED: Milk Of Magnesia 30 ML UDCUP PO PRN (11:39)
[2022-08-28] MEDS: methylPREDNISolone Sod Succ 40 MG VIAL IVP SCH ×3 (02:06→17:13)
[2022-08-28] MEDS: Mometasone/Formoterol 200/5 60 PUFF INH SCH ×2 (07:28→18:35)
[2022-08-28] MEDS: Ferrous Sulfate 325 MG TAB PO SCH (08:46)
[2022-08-28] MEDS: Enoxaparin Sodium 40 MG/0.4 ML SYRINGE SC SCH (08:46)
[2022-08-28] MEDS: Aspirin 81 mg Enteric Coated Tablet PO SCH (08:46)
[2022-08-28] MEDS: Lisinopril 5 MG TAB PO SCH (08:47)
[2022-08-28] MEDS: guaiFENesin ER 600 MG TAB PO SCH ×2 (08:47→20:33)
[2022-08-29] MEDS: methylPREDNISolone Sod Succ 40 MG VIAL IVP SCH ×2 (02:19→11:17)
[2022-08-29] MEDS: Ondansetron ODT 4 MG TAB PO PRN (02:19)
[2022-08-29] MEDS: Mometasone/Formoterol 200/5 60 PUFF INH SCH (06:50)
[2022-08-29] MEDS: Ferrous Sulfate 325 MG TAB PO SCH (07:59)
[2022-08-29] MEDS: Aspirin 81 mg Enteric Coated Tablet PO SCH (08:00)
[2022-08-29] MEDS: guaiFENesin ER 600 MG TAB PO SCH (08:00)
[2022-08-29] MEDS: Enoxaparin Sodium 40 MG/0.4 ML SYRINGE SC SCH (08:00)
[2022-08-29] MEDS: Lisinopril 5 MG TAB PO SCH (08:00)
[2022-08-29 11:21] VITALS: BP 145/81; TEMP 97.9
[2022-08-29] MEDS ORDERED: Bisacodyl 10 MG SUPP PR SCH (13:30)
== END 2022-08-29 14:00 | DRG 189 ==
LOC: ERS 06:52 → INTOOBSV 09:44 → ERHOLD 09:44 → 2NO 15:15 → OBSVTOIN 08-22 07:30
PROVIDERS: ADMIT Internal Medicine; ATTEND Internal Medicine
PROC: 5A09357 Assistance with Respiratory Ventilation, Less than 24 Consecutive Hours, Continuous Positive Airway Pressure (ICD-10-PCS; principal; 2022-08-21)
DX: J96.21 Acute and chronic respiratory failure with hypoxia (principal); I47.1 Supraventricular tachycardia; J43.9 Emphysema, unspecified; Z66 Do not resuscitate; Z20.822 Contact with and (suspected) exposure to COVID-19; I27.20 Pulmonary hypertension, unspecified; I12.9 Hypertensive chronic kidney disease with stage 1 through stage 4 chronic kidney disease, or unspecified chronic kidney disease; N18.2 Chronic kidney disease, stage 2 (mild); E78.5 Hyperlipidemia, unspecified; R07.89 Other chest pain; I08.3 Combined rheumatic disorders of mitral, aortic and tricuspid valves; F41.9 Anxiety disorder, unspecified; R91.8 Other nonspecific abnormal finding of lung field; J84.10 Pulmonary fibrosis, unspecified; Z99.81 Dependence on supplemental oxygen; Z79.899 Other long term (current) drug therapy; Z79.51 Long term (current) use of inhaled steroids; Z90.89 Acquired absence of other organs; Z98.890 Other specified postprocedural states; Z82.49 Family history of ischemic heart disease and other diseases of the circulatory system; Z87.891 Personal history of nicotine dependence
CPT/HCPCS: 36415; 36416; 71045; 71275; 76856; 80048; 80053; 80202; 81001; 83605; 83735; 83880; 84100; 84145; 84439; 84443; 84481; 84484; 85025; 87040; 87077; 87149; 87811; 93005; 93306; 94640; 94664; 94760; 96365; 96366; 96367; 96375; 96376; G0378; J0360; J1650; J1956; J2920; J2930; J3370; J3475; J7620; Q0162; Q9967

== ENCOUNTER 2022-10-23 14:33 | Outpatient (CLI) | payer OTHER, MEDICAID | END 2022-10-23 14:34 | disposition home or self-care (01) | LOC: RAD 14:33 | PROVIDERS: ATTEND Internal Medicine Pulmonary Disease | DX: R06.00 Dyspnea, unspecified (principal); J98.4 Other disorders of lung | CPT/HCPCS: 71046 ==